=== PATIENT | male | born 1995 | race Two or more races ===

== ENCOUNTER 2024-07-19 17:29 | Observation (INO) | payer MEDICAID, SELFPAY ==
[2024-07-19 17:32] VITALS: BMI 33.6
[2024-07-19 17:45] VITALS: BP 185/120; BP 187/124; PULSE 104; RESP 18; TEMP 37.1; O2SAT 98
--- NOTE | 2024-07-19 18:06 | PD.EDADULT ---
ED General RME/HPI General Chief complaint: Abdominal Pain Stated complaint: Possible DKA, Pain to right x 2 weeks ago Time Seen by Provider: 07/19/24 17:35 Arrival date/time: 07/19/24 17:29 RME / HPI RME / HPI narrative: 29-year-old male coming to the emergency department with increased blood sugars and thigh pain that started in the last 2 weeks. The patient states that he has not had a, and he does not have any type of infection or rash. However he has had specific trauma that he noticed. Otherwise no back pain, and no falls. The patient states that he just recently restarted his bipolar medication as well. Related Data Home Medications ?Medication ?Instructions ?Recorded ?Confirmed chlorthalidone 25 mg tablet 25 mg PO QDAY 11/04/19 12/25/22 insulin glargine 100 unit/mL (3 20 unit subcut QDAY 11/04/19 12/25/22 mL) subcutaneous pen (Basaglar KwikPen U-100 Insulin) insulin regular human 100 unit/mL 10 unit subcut TID 11/04/19 12/25/22 injection solution (Humulin R Regular U-100 Insulin) lisinopril 40 mg tablet 40 mg PO QDAY 11/04/19 12/25/22 buspirone 30 mg tablet 30 mg PO QHSPRN PRN Anxiety 12/18/22 12/18/22 sertraline 100 mg tablet 100 mg PO QHSPRN PRN DEPRESSION 12/18/22 12/18/22 ziprasidone HCl 80 mg capsule 80 mg PO QHSPRN PRN ANTIPSYCHOTIC 12/18/22 12/18/22 Previous Rx's ?Medication ?Instructions ?Recorded hydroxyzine HCl 50 mg tablet 50 mg PO Q6H PRN anxiety #20 tabs 11/03/19 doxycycline hyclate 100 mg capsule 100 mg PO BID #14 caps 11/14/22 Allergies Allergy/AdvReac Type Severity Reaction Status Date / Time cephalexin Allergy Severe RASH Verified 03/14/21 14:45 amoxicillin Allergy Verified 11/14/22 10:44 Course Orders Category Date Time Status Bedside Blood Glucose NOW Care 07/19/24 17:36 Active A1C [Glycohemoglobin w (eAG)] Stat Lab 07/19/24 17:53 Ordered Alcohol, Blood Medical Stat Lab 07/19/24 17:53 Ordered Beta Hydroxybutyrate Stat Lab 07/19/24 17:53 Ordered CBC Stat Lab 07/19/24 17:53 Ordered Comprehensive Metabolic Panel Stat Lab 07/19/24 17:53 Ordered Drug Screen,Urine Stat Lab 07/19/24 17:53 Ordered Lipase Stat Lab 07/19/24 17:53 Ordered UA, C/S IF [Urinalysis, C/S if Indicated] Stat Lab 07/19/24 17:53 Ordered VBG [Venous Blood Gas] Stat Lab 07/19/24 17:53 Ordered Sodium Chloride 0.9% 1000 ml [Ns] 1,000 ml Med 07/19/24 17:53 Active IV 999 mls/hr Vital Signs Vital signs: Vital Signs Temperature 98.7 F 07/19/24 17:45 Pulse Rate 104 H 07/19/24 17:45 Respiratory Rate 18 07/19/24 17:45 Blood Pressure 187/124 H 07/19/24 17:45 Pulse Oximetry (%) 98 07/19/24 17:45 Oxygen Delivery Method Room Air 07/19/24 17:45 MDM Medications Medication administrations:: Medication Administration History Sodium Chloride (Ns) 1,000 mls @ 999 mls/hr IV .Q1H1M ONE Stop: 07/19/24 18:53 Medical Decision Making MDM Narrative MDM Narrative: Differential diagnosis includes DVT, cellulitis, abscess, noncompliance. Discharge Plan Prescriptions/Referrals Prescriptions/Med Rec: No Action hydroxyzine HCl 50 mg tablet 50 mg PO Q6H PRN (Reason: anxiety) Qty: 20 0RF chlorthalidone 25 mg Tablet 25 mg PO QDAY Humulin R Regular U-100 Insuln 100 unit/mL Solution 10 unit SUBCUT TID lisinopril 40 mg Tablet 40 mg PO QDAY insulin glargine [Basaglar KwikPen U-100 Insulin] 100 unit/mL (3 mL) Insulin Pen 20 unit SUBCUT QDAY doxycycline hyclate 100 mg capsule 100 mg PO BID Qty: 14 0RF ziprasidone HCl 80 mg Capsule 80 mg PO QHSPRN PRN (Reason: ANTIPSYCHOTIC) Rx Instructions: give with food (meal/snack) sertraline 100 mg Tablet 100 mg PO QHSPRN PRN (Reason: DEPRESSION) buspirone 30 mg Tablet 30 mg PO QHSPRN PRN (Reason: Anxiety) Patient/Caregiver Discharge Instructions Print Language: Swazi
--- NOTE | 2024-07-19 18:12 | XR_ITS ---
Examination: Duplex scan of the lower extremity, unilateral right complete Date and time of exam: July 19, 2024 1837 hrs. Indications: Right thigh pain beginning 3 weeks ago Technique: Duplex scan of the extremity veins using B-mode/grayscale imaging and Doppler spectral analysis and color flow Attention is directed to internal echogenicity, compression and augmentation involving these veins, color flow assessment, spectral analysis Findings: Major deep venous structures in the extremity demonstrate normal course and caliber. There is no evidence of deep vein thrombosis. Normal color flow and spectral analysis Impression: Negative for DVT..
[2024-07-19 18:14] LABS: Collection Type, Urine Clean Catch; Squamous Epithelial Cell,Urine 0 /hpf (0-5); WBC,Urine 0 /hpf (0-5)
[2024-07-19 18:15] LABS: Base Excess, Venous -1 (-3-3); O2 Saturation, Venous 33 % (96-97); PCO2, Venous 55 mmHg (36-56); PO2, Venous 22 mmHg (15-58)
[2024-07-19 18:16] VITALS: BP 131/99; PULSE 101; RESP 14; TEMP 36.9; O2SAT 97
[2024-07-19 18:18] LABS: Basophils # (Auto) 0.1 Thou/mm3 (0.0-0.2); Basophils % (Auto) 1 % (0-2.5); Eosinophils # (Auto) 0.5 Thou/mm3 (0.0-0.5); Eosinophils % (Auto) 5 % (0-10); Hematocrit 45.4 % (41.0-53.0); Immature Granulocytes % (Auto) 0 % (0-0); Immature Granulocytes Auto 0.03 Thou/mm3 (0.00-0.00); Lymphocytes # (Auto) 3.1 Thou/mm3 (1.0-4.8); Lymphocytes % (Auto) 30 % (10-50); Mean Corpuscular HGB Conc 37.4 g/dl (31.0-37.0); Mean Corpuscular Hemoglobin 31.9 pg (25.0-35.0); Mean Corpuscular Volume 85 fL (80-100); Monocytes # (Auto) 0.7 Thou/mm3 (0.0-0.8); Monocytes % (Auto) 6 % (0-12); Neutrophils % (Auto) 58 % (37-80); Nucleated Red Blood Cell % 0 /100 WBC (0); Platelet Count 516 Thou/mm3 (140-440); RDW Standard Deviation 37.9 fL (35.1-43.9); Red Blood Count 5.33 Miln/mm3 (4.50-5.90); White Blood Count 10.3 Thou/mm3 (3.8-10.6)
[2024-07-19 18:19] LABS: Beta Hydroxybutyrate 0.2 mmol/L (<0.6)
--- NOTE | 2024-07-19 18:25 | PD.EDADULT ---
ED General RME/HPI General Chief complaint: Abdominal Pain Stated complaint: Possible DKA, Pain to right x 2 weeks ago Time Seen by Provider: 07/19/24 17:35 Arrival date/time: 07/19/24 17:29 Physical right leg pain, suicidal and homicidal ideation, elevated blood glucose level. The patient presents to the ER with these complaints likely has been ongoing for the past 2 weeks review the medical record show the patient has been here multiple times for hyperglycemia. Patient admits to being depressed but has no plan. Currently localized leg pain is 3-4 on a 10 scale nonradiating. Patient is awake alert flat affect with no direct eye contact. Patient also states that he is both homicidal and suicidal without a plan. Patient dates he does not get along with his family members. RME / HPI RME / HPI narrative: 29-year-old male coming to the emergency department with increased blood sugars and thigh pain that started in the last 2 weeks. The patient states that he has not had a, and he does not have any type of infection or rash. However he has had specific trauma that he noticed. Otherwise no back pain, and no falls. The patient states that he just recently restarted his bipolar medication as well. Related Data Home Medications ?Medication ?Instructions ?Recorded ?Confirmed buspirone 30 mg tablet 30 mg PO QHSPRN PRN Anxiety 12/18/22 07/20/24 sertraline 100 mg tablet 100 mg PO QHSPRN PRN DEPRESSION 12/18/22 07/20/24 ziprasidone HCl 80 mg capsule 80 mg PO QHSPRN PRN ANTIPSYCHOTIC 12/18/22 07/20/24 trazodone 50 mg tablet 50 mg PO HS 07/20/24 07/20/24 Previous Rx's ?Medication ?Instructions ?Recorded amlodipine 10 mg tablet 10 mg PO HS 1 month #30 tabs 07/21/24 blood sugar diagnostic (Blood #50 ea 07/21/24 Glucose Test strips) blood-glucose meter #1 ea 07/21/24 chlorthalidone 25 mg tablet 25 mg PO QDAY 1 month #30 tabs 07/21/24 flash glucose scanning reader #1 ea 07/21/24 (FreeStyle Shannan 2 Spencer) flash glucose sensor (FreeStyle #2 ea 07/21/24 Shannan 2 Sensor kit) insulin degludec 200 unit/mL (3 10 unit (0.05 mL) subcut HS 1 07/21/24 mL) subcutaneous pen month #1.5 mL insulin lispro 100 unit/mL 5 unit (0.05 mL) subcut TID 1 07/21/24 subcutaneous pen month #4.5 mL lancets #100 ea 07/21/24 losartan 50 mg tablet 50 mg PO QDAY 1 month #30 tabs 07/21/24 pen needle, diabetic 29 gauge x #100 ea 07/21/24 1/2 (Pen Needle) Allergies Allergy/AdvReac Type Severity Reaction Status Date / Time cephalexin Allergy Severe RASH Verified 03/14/21 14:45 amoxicillin Allergy Verified 11/14/22 10:44 Review of Systems Review of Systems Narrative Review of Systems: GEN: No fever, no chills, no weight loss EYES: No discharge, no visual changes, no pain HEENT: No ear pain, no congestion, no sore throat PULM: No shortness of breath, no cough, no congestion CV: No chest pain, no dyspnea on exertion, no palpitations GI: No nausea, no vomiting, no diarrhea, no pain, no constipation : No frequency, no urgency, no dysuria MUSC/SKEL: No joint pain, no back pain,+ leg pain SKIN: No rash PSYCH: No hallucinations, no depression HEME/LYMPH: No easy bleeding or bruising tendencies NEURO: No weakness, no headache ED Exam Narrative Physical exam: [General: Obese agitated tearful but not in any acute distress Head normocephalic HEENT: Within acceptable limits Neck is supple nontender Chest equal chest rise nontender to palpation Respiratory: Clear to auscultation no wheezes crackles or rubs CV: Rate rhythm is regular no murmurs rubs or clicks Abdomen is distended secondary to body habitus soft nontender no masses positive bowel sounds all 4 quadrants Back: No CVA tenderness no spinous process tenderness from cervical spine thoracic and lumbar spine Skin: Intact no petechiae rash induration ulceration or crepitus Extremities: Mild tenderness to the medial aspect of the right upper thigh there is no erythema edema bulging outpouching or tracks. All other aspects of the right thigh including anterior and posterior surface are intact. Moving all other extremities against resistance cap refill less than 2 seconds neurosensory intact Neuro: Awake alert oriented x3 Glascow coma 15 no focal deficits] Course Quality Measures none Orders Category Date Time Status 1799 Psychiatric Hold NOW Care 07/19/24 18:30 Ordered Bedside Blood Glucose NOW Care 07/19/24 17:36 Completed US venous doppler LE RT Stat Exams 07/19/24 18:12 Completed A1C [Glycohemoglobin w (eAG)] Stat Lab 07/19/24 18:04 Completed Alcohol, Blood Medical Stat Lab 07/19/24 18:04 Completed Alcohol, Blood Medical Stat Lab 07/19/24 23:05 Completed Beta Hydroxybutyrate Stat Lab 07/19/24 18:04 Completed Blood Culture (Lab) Stat Lab 07/20/24 08:40 Results CBC Stat Lab 07/19/24 18:04 Completed CBC Stat Lab 07/20/24 08:35 Completed CMP [Comprehensive Metabolic Panel] Stat Lab 07/20/24 07:50 Completed Comprehensive Metabolic Panel Stat Lab 07/19/24 18:04 Completed Drug Screen,Urine Stat Lab 07/19/24 18:06 Completed Lactate (Lactic Acid) Stat Lab 07/20/24 08:35 Completed Lipase Stat Lab 07/19/24 18:04 Completed Lipase Stat Lab 07/20/24 07:50 Completed Lipid Panel Stat Lab 07/19/24 18:04 Completed UA, C/S IF [Urinalysis, C/S if Indicated] Stat Lab 07/19/24 18:06 Completed VBG [Venous Blood Gas] Stat Lab 07/19/24 18:04 Completed Venous Blood Gas Stat Lab 07/20/24 08:35 Completed Acetaminophen Tab [Tylenol Tab] Med 07/19/24 21:07 Discontinued 650 mg PO X1 ONE Acetaminophen Tab [Tylenol Tab] Med 07/20/24 04:21 Discontinued 650 mg PO X1 ONE LORazepam [Ativan] Med 07/20/24 04:21 Discontinued 2 mg PO X1 ONE Sodium Chloride 0.9% 1000 ml [Ns] 1,000 ml Med 07/20/24 11:27 Discontinued IV 150 mls/hr Sodium Chloride 0.9% 1000 ml [Ns] 1,000 ml Med 07/19/24 17:53 Discontinued IV 999 mls/hr Sodium Chloride 0.9% 1000 ml [Ns] 1,000 ml Med 07/20/24 08:15 Discontinued IV 999 mls/hr Vital Signs Vital signs: Vital Signs Temperature 98.7 F 07/19/24 17:45 Pulse Rate 104 H 07/19/24 17:45 Respiratory Rate 18 07/19/24 17:45 Blood Pressure 187/124 H 07/19/24 17:45 Pulse Oximetry (%) 98 07/19/24 17:45 Oxygen Delivery Method Room Air 07/19/24 17:45 [facility] Patient data [facility] records [facility] previous records Clinical information provided by:: patient Social determinants that could affect healthcare access:: none Patient has the following chronic illnesses:: Diabetes How is presenting disease/condition affected by chronic disease/condition?: exacerbated by Evaluation data The following diagnostics were reviewed and interpreted by me:: lab results and radiology exam(s) Lab and/or radiology exams considered but not ordered:: CBC shows no acute leukocytosis anemia thrombocytopenia CMP shows significantly elevated blood glucose level no other electrolyte imbalances no renal impairment transaminitis or T. bili elevation VBG shows pH of 7.30 Hemoglobin A1c is 13 Alcohol level is 181 Lipase is 115 Beta hydroxy was 0.2. Interpretation Summary: The patient has hyperglycemia without DKA. Patient is alcohol intoxicated Medications Medications considered but not ordered:: None Medication administrations:: Medication Administration History Discontinued Medications Acetaminophen (Acetaminophen 325 Mg Tablet) 650 mg PO X1 ONE Stop: 07/19/24 21:08 Last Admin: 07/19/24 21:09 Dose: 650 mg Documented By: EE Acetaminophen (Acetaminophen 325 Mg Tablet) 650 mg PO X1 ONE Stop: 07/20/24 04:22 Last Admin: 07/20/24 04:36 Dose: 650 mg Documented By: EE Acetaminophen (Acetaminophen 325 Mg Tablet) 650 mg PO Q6H PRN PRN Reason: Fever >101.5 Stop: 08/19/24 12:06 Amlodipine Besylate (Amlodipine Besylate 5 Mg Tablet) 5 mg PO X1 PRN PRN Reason: SBP >160 Amlodipine Besylate (Amlodipine Besylate 5 Mg Tablet) 10 mg PO QDAY [facility] Stop: 08/19/24 12:29 Last Admin: 07/20/24 14:30 Dose: 10 mg Documented By: IKE Amlodipine Besylate (Amlodipine Besylate 5 Mg Tablet) 10 mg PO QDAY [facility] Stop: 08/20/24 08:59 Last Admin: 07/21/24 09:38 Dose: 10 mg Documented By: NS Aripiprazole (Aripiprazole 5 Mg Tablet) 30 mg PO QDAY [facility] Stop: 08/19/24 17:14 Last Admin: 07/21/24 09:36 Dose: 30 mg Documented By: Admin: 07/20/24 19:10 Dose: 30 mg Documented By: IKE Buspirone HCl (Buspirone Hcl 5 Mg Tablet) 20 mg PO X1 PRN PRN Reason: AGITATION OR ANXIETY Chlordiazepoxide HCl (Chlordiazepoxide Hcl 25 Mg Capsule) 25 mg PO Q8HR [facility] Stop: 07/25/24 13:59 Last Admin: 07/21/24 14:11 Dose: 25 mg Documented By: Admin: 07/21/24 05:00 Dose: 25 mg Documented By: Admin: 07/20/24 21:20 Dose: 25 mg Documented By: Admin: 07/20/24 14:31 Dose: 25 mg Documented By: IKE Clonidine (Clonidine Hcl 0.1 Mg Tablet) 0.1 mg PO X1 ONE Stop: 07/20/24 21:45 Last Admin: 07/20/24 21:55 Dose: 0.1 mg Documented By: KRISTIE Dextrose (Dextrose 50%-Water Inj 50 Ml Syringe) 25 ml IV Q15MIN PRN PRN Reason: BG 50-70 responsive npo pt Stop: 08/19/24 12:15 Dextrose (Dextrose 50%-Water Inj 50 Ml Syringe) 50 ml IV Q15MIN PRN PRN Reason: BG <50 OR BG <70 & pt unresponsive Stop: 08/19/24 12:15 Folic Acid (Folic Acid 1 Mg Tablet) 1 mg PO QDAY [facility] Stop: 08/23/24 08:59 Folic Acid (Folic Acid Inj 1 Mg/0.2 Ml) 1 mg IVP QDAY [facility] Stop: 07/24/24 08:59 Last Admin: 07/21/24 11:54 Dose: 1 mg Documented By: TONYA Glucagon (Glucagon Inj 1 Mg Vial) 1 mg IM Q15MIN PRN PRN Reason: BG <70, and no IV access Hydralazine HCl (Hydralazine Inj 20 Mg/Ml Vial) 10 mg IV Q6HR PRN PRN Reason: SBP > 170 Stop: 08/19/24 18:16 Last Admin: 07/20/24 20:01 Dose: 10 mg Documented By: KRISTIE Sodium Chloride (Ns) 1,000 mls @ 999 mls/hr IV .Q1H1M ONE Stop: 07/19/24 18:53 Last Infusion: 07/19/24 20:50 Dose: Infused Documented By: Admin: 07/19/24 18:44 Dose: 999 mls/hr Documented By: GM Sodium Chloride (Ns) 1,000 mls @ 999 mls/hr IV .Q1H1M ONE Stop: 07/20/24 09:15 Last Infusion: 07/20/24 09:50 Dose: Infused Documented By: Admin: 07/20/24 08:31 Dose: 999 mls/hr Documented By: AVM Sodium Chloride (Ns) 1,000 mls @ 150 mls/hr IV .Q6H40M ONE; Protocol Stop: 07/20/24 18:06 Last Admin: 07/20/24 11:57 Dose: 150 mls/hr Documented By: IKE Magnesium Sulfate (Magnesium Sulfate Ivpb) 2 gm in 50 mls @ 25 mls/hr IV X1 ONE Stop: 07/21/24 10:55 Last Admin: 07/21/24 09:37 Dose: 25 mls/hr Documented By: TONYA Influenza Virus Vaccine Quadrival (Influenza Virus Quadrivalent 0.5 Ml Syringe) 0.5 ml IMi .ONCE ONE Stop: 07/23/24 21:15 Insulin Glargine (Insulin Glargine (Lantus) 5 Unit/0.05 Ml (Per 5 Units)) 10 unit SC [facility] Stop: 08/19/24 20:59 Last Admin: 07/20/24 21:20 Dose: 10 unit Documented By: WO Co-signed By: FF Insulin Human Lispro (Insulin Lispro (Admelog) 1 Unit/0.01 Ml Unit) 0 unit SC [facility]; Protocol Stop: 08/19/24 16:59 Last Admin: 07/21/24 11:53 Dose: 1 unit Documented By: TONYA Co-signed By: [email or web address] Admin: 07/21/24 08:22 Dose: 1 unit Documented By: TONYA Co-signed By: CS Admin: 07/20/24 20:30 Dose: Not Given Documented By: WO Non-Admin Reason: Per Protocol Admin: 07/20/24 18:27 Dose: 1 unit Documented By: IKE Co-signed By: SL Labetalol HCl (Labetalol Inj 5 Mg/Ml Vial 20 Ml) 10 mg IVP X1 ONE Stop: 07/20/24 21:35 Last Admin: 07/21/24 00:18 Dose: Not Given Documented By: WO Non-Admin Reason: Discontinued Lisinopril (Lisinopril 20 Mg Tablet) 40 mg PO QDAY [facility] Stop: 08/20/24 11:14 Last Admin: 07/21/24 11:53 Dose: 40 mg Documented By: NS Lorazepam (Lorazepam 0.5 Mg Tablet) 2 mg PO X1 ONE Stop: 07/20/24 04:22 Last Admin: 07/20/24 04:35 Dose: 2 mg Documented By: MIKKI Lorazepam (Lorazepam 0.5 Mg Tablet) 1 mg PO Q4HR PRN PRN Reason: CIWA SCORE 7-11 Stop: 07/25/24 12:11 Lorazepam (Lorazepam 0.5 Mg Tablet) 2 mg PO Q4HR PRN PRN Reason: CIWA SCORE 12-15 Stop: 07/25/24 12:11 Lorazepam (Lorazepam 0.5 Mg Tablet) 0.5 mg PO Q4HR PRN PRN Reason: CIWA Score 2-6 Stop: 07/25/24 12:11 Last Admin: 07/20/24 20:01 Dose: 0.5 mg Documented By: KRISTIE Lorazepam (Lorazepam 2 Mg/Ml Vial) 1 mg IV X1 PRN PRN Reason: Breakthrough Agitation Ondansetron HCl (Ondansetron Inj 2 Mg/Ml Inj 2 Ml) 4 mg IV Q6H PRN; Protocol PRN Reason: NAUSEA OR VOMITING Stop: 08/19/24 12:06 Pantoprazole Sodium (Pantoprazole 40 Mg Tablet) 40 mg PO QDAY [facility] Stop: 08/20/24 08:59 Last Admin: 07/21/24 09:36 Dose: 40 mg Documented By: NS Sertraline HCl (Sertraline Hcl 25 Mg Tablet) 25 mg PO [facility] Stop: 08/19/24 20:59 Sertraline HCl (Sertraline Hcl 25 Mg Tablet) 50 mg PO [facility] Stop: 08/19/24 20:59 Last Admin: 07/20/24 21:20 Dose: 50 mg Documented By: KRISTIE Thiamine HCl (Thiamine Inj 100 Mg/Ml Vial 2 Ml) 100 mg IVP QDAY [facility] Stop: 07/24/24 06:00 Last Admin: 07/21/24 09:37 Dose: 100 mg Documented By: NS Thiamine HCl (Thiamine 100 Mg Tablet) 100 mg PO QDAY [facility] Stop: 08/23/24 08:59 Trazodone HCl (Trazodone Hcl 50 Mg Tablet) 50 mg PO HS [facility] Stop: 08/19/24 21:34 Last Admin: 07/20/24 21:55 Dose: 50 mg Documented By: WO Ziprasidone (Ziprasidone 20 Mg Capsule) 20 mg PO HS [facility] Stop: 08/19/24 20:59 None Consultations Consultation(s) initiated? (list below): No Diagnosis Differential Diagnosis ED Complaint MDM: Suicidal ideation alcohol intoxication schizophrenia Most likely diagnosis given after review of the tests above:: Suicidal ideation alcohol intoxication Admission Indicated Admission indicated?: indicated Explain why admission is indicated or not indicated:: Cycled Admission Request Was there a request for admission?: No Disposition Plan Disposition Plan: Discharge Discharge Attestation Discharge Attestation: The patient and all family members were given an opportunity to ask questions and understood the discharge instructions. Discharge instructions specifically effects, indications for sooner follow up or return to the emergency department, and the expected course of current diagnosis. Patient condition: Stable Medical Decision Making Differential Diagnosis Differential Diagnosis: Suicidal ideation alcohol intoxication schizophrenia Lab Data 07/21/24 04:33 07/21/24 04:33 Labs: Lab Results 07/19/24 07/19/24 07/19/24 Range/Units 18:04 18:06 23:05 WBC 10.3 (3.8-10.6) Thou/mm3 RBC 5.33 (4.50-5.90) Miln/mm3 Hgb 17.0 H (13.5-16.0) g/dL Hct 45.4 (41.0-53.0) % MCV 85 (80-100) fL MCH 31.9 (25.0-35.0) pg MCHC 37.4 H (31.0-37.0) g/dl RDW Std Deviation 37.9 (35.1-43.9) fL Plt Count 516 H (140-440) Thou/mm3 Neut % (Auto) 58 (37-80) % Lymph % (Auto) 30 (10-50) % [place] % (Auto) 6 (0-12) % Eos % (Auto) 5 (0-10) % Baso % (Auto) 1 (0-2.5) % Neut # (Auto) 6.0 (1.8-7.7) Thou/mm3 Lymph # (Auto) 3.1 (1.0-4.8) Thou/mm3 [place] # (Auto) 0.7 (0.0-0.8) Thou/mm3 Eos # (Auto) 0.5 (0.0-0.5) Thou/mm3 Baso # (Auto) 0.1 (0.0-0.2) Thou/mm3 Immature Gran # (Auto) 0.03 H (0.00-0.00) Thou/mm3 Absolute Nucleated RBC 0.00 (0.00-0.00) Thou/mm3 Immature Gran % 0 (0-0) % Nucleated RBC % 0 (0) /100 WBC VBG pH 7.30 L (7.33-7.66) VBG pCO2 55 (36-56) mmHg VBG pO2 22 (15-58) mmHg VBG O2 Sat (Obdulia) 33 L (96-97) % VBG Base Excess -1 (-3-3) Sodium 127 L (136-145) mMol/L Potassium 4.4 (3.4-5.1) mMol/L Chloride 93 L (98-107) mMol/L Carbon Dioxide 25.3 (20.0-31.0) mMol/L Anion Gap 9 (7-16) BUN 22 (9-23) mg/dL Creatinine 1.7 H (0.6-1.3) mg/dL Estim Creat Clear Calc 61.1 (>60) mL/min eGFR 55 L (60 - ) See Note BUN/Creatinine Ratio 13 (12-20) Ratio Glucose 357 H (74-106) mg/dL Estimated Ave Glu mg/dL 329 H (80-131) mg/dL Hemoglobin A1c 13.1 H (4.8-6.0) % Hgb Calculated Osmolality 272 L (275-295) Lactic Acid (0.4-2.0) mMol/L Calcium 10.2 (8.3-10.6) mg/dL Corrected Calcium 10.2 H (8.5-10.1) mg/dL Total Bilirubin 0.2 L (0.3-1.2) mg/dL AST 17 (0-34) U/L ALT 16 (10-49) U/L Alkaline Phosphatase 146 H (46-116) U/L Total Protein 9.7 H (5.7-8.2) gm/dL Albumin 5.0 (3.5-5.0) gm/dL Globulin 4.7 H (2.3-3.5) gm/dL Albumin/Globulin Ratio 1.1 L (1.2-2.2) Triglycerides 221 H (30-150) mg/dL Cholesterol 171 (132-200) mg/dL LDL Cholesterol, Calc 68 (0-130) mg/dL HDL Cholesterol 59 (40-60) mg/dL Cholesterol/HDL Ratio 2.9 L (4.0-6.7) RATIO Lipase 150 H (12-53) U/L Beta-Hydroxybutyrate/Acetoacetate 0.2 (<0.6) mmol/L Ur Collection Type Clean Catch Urine Color Colorless A (Lt Yel-Yel) Urine Clarity Clear (Clear/Hazy) Urine pH 6.0 (5.0-7.0) Ur Specific [place] 1.007 (1.001-1.035) Urine Protein 1+ A (Neg - Trace) Urine Glucose (UA) 4+ A (Negative) Urine Ketones Negative (Negative) Urine Blood Trace (Negative) Urine Nitrite Negative (Negative) Urine Bilirubin Negative (Negative) Urine Urobilinogen (Auto) Negative (0.0-1.0) mg/dL Ur Leukocyte Esterase Negative (Negative) Urine RBC 4 H (0-3) /hpf Urine WBC 0 (0-5) /hpf Ur Squamous Epith Cells 0 (0-5) /hpf Urine Bacteria Rare (None) Ur Culture Indicated? Not Indicated Urine Opiates Screen Negative (Negative) Urine Fentanyl Screen Negative (Negative) Ur Barbiturates Screen Negative (Negative) U Amphetamin/Meth Scrn Negative (Negative) U Benzodiazepines Scrn Negative (Negative) U Cocaine Metab Screen Negative (Negative) U Marijuana (THC) Screen Positive A (Negative) Ethyl Alcohol 190.4 H 49.6 H (0-10.0) mg/dL 07/20/24 07/20/24 Range/Units 07:50 08:35 WBC 7.6 (3.8-10.6) Thou/mm3 RBC 4.79 (4.50-5.90) Miln/mm3 Hgb 14.3 D (13.5-16.0) g/dL Hct 42.1 (41.0-53.0) % MCV 88 (80-100) fL MCH 29.9 (25.0-35.0) pg MCHC 34.0 (31.0-37.0) g/dl RDW Std Deviation 40.0 (35.1-43.9) fL Plt Count 371 D (140-440) Thou/mm3 Neut % (Auto) 53 (37-80) % Lymph % (Auto) 34 (10-50) % [place] % (Auto) 8 (0-12) % Eos % (Auto) 4 (0-10) % Baso % (Auto) 1 (0-2.5) % Neut # (Auto) 4.1 (1.8-7.7) Thou/mm3 Lymph # (Auto) 2.6 (1.0-4.8) Thou/mm3 [place] # (Auto) 0.6 (0.0-0.8) Thou/mm3 Eos # (Auto) 0.3 (0.0-0.5) Thou/mm3 Baso # (Auto) 0.1 (0.0-0.2) Thou/mm3 Immature Gran # (Auto) 0.02 H (0.00-0.00) Thou/mm3 Absolute Nucleated RBC 0.00 (0.00-0.00) Thou/mm3 Immature Gran % 0 (0-0) % Nucleated RBC % 0 (0) /100 WBC VBG pH 7.36 (7.33-7.66) VBG pCO2 48 (36-56) mmHg VBG pO2 36 (15-58) mmHg VBG O2 Sat (Obdulia) 68 L D (96-97) % VBG Base Excess 1 (-3-3) Sodium 138 D (136-145) mMol/L Potassium 4.5 (3.4-5.1) mMol/L Chloride 105 (98-107) mMol/L Carbon Dioxide 28.0 (20.0-31.0) mMol/L Anion Gap 5 L (7-16) BUN 22 (9-23) mg/dL Creatinine 1.4 H (0.6-1.3) mg/dL Estim Creat Clear Calc 74.2 (>60) mL/min eGFR > 60 (60 - ) See Note BUN/Creatinine Ratio 16 (12-20) Ratio Glucose 111 H D (74-106) mg/dL Estimated Ave Glu mg/dL (80-131) mg/dL Hemoglobin A1c (4.8-6.0) % Hgb Calculated Osmolality 279 (275-295) Lactic Acid 0.9 (0.4-2.0) mMol/L Calcium 10.1 (8.3-10.6) mg/dL Corrected Calcium 10.1 (8.5-10.1) mg/dL Total Bilirubin 0.3 (0.3-1.2) mg/dL AST 13 (0-34) U/L ALT 12 (10-49) U/L Alkaline Phosphatase 100 D (46-116) U/L Total Protein 8.0 (5.7-8.2) gm/dL Albumin 4.0 D (3.5-5.0) gm/dL Globulin 4.0 H (2.3-3.5) gm/dL Albumin/Globulin Ratio 1.0 L (1.2-2.2) Triglycerides (30-150) mg/dL Cholesterol (132-200) mg/dL LDL Cholesterol, Calc (0-130) mg/dL HDL Cholesterol (40-60) mg/dL Cholesterol/HDL Ratio (4.0-6.7) RATIO Lipase 38 D (12-53) U/L Beta-Hydroxybutyrate/Acetoacetate (<0.6) mmol/L Ur Collection Type Urine Color (Lt Yel-Yel) Urine Clarity (Clear/Hazy) Urine pH (5.0-7.0) Ur Specific [place] (1.001-1.035) Urine Protein (Neg - Trace) Urine Glucose (UA) (Negative) Urine Ketones (Negative) Urine Blood (Negative) Urine Nitrite (Negative) Urine Bilirubin (Negative) Urine Urobilinogen (Auto) (0.0-1.0) mg/dL Ur Leukocyte Esterase (Negative) Urine RBC (0-3) /hpf Urine WBC (0-5) /hpf Ur Squamous Epith Cells (0-5) /hpf Urine Bacteria (None) Ur Culture Indicated? Urine Opiates Screen (Negative) Urine Fentanyl Screen (Negative) Ur Barbiturates Screen (Negative) U Amphetamin/Meth Scrn (Negative) U Benzodiazepines Scrn (Negative) U Cocaine Metab Screen (Negative) U Marijuana (THC) Screen (Negative) Ethyl Alcohol (0-10.0) mg/dL Discharge Plan Plan Patient Disposition: Other Care w/in Hosp ([facility]) Disposition Comment: Hospitalist Patient condition on transfer: Stable Problem List Clinical Impression: Acute kidney injury, Diabetes mellitus with hyperglycemia, Acute dehydration, Polycythemia, Metabolic acidosis, History of ETOH abuse Patient/Caregiver Discharge Instructions Discharge Activity: resume usual activities
--- NOTE | 2024-07-19 18:30 | PC.NURSE ---
PT OCMING FROM ED LOBBY S/P HYPERGLYCEMIA; PT REPORTS TAKING FSBS AT HOME RESULTING 414. PT HAS HX OF DM AND PSYHICATRIC DISORDERS (BIPOLAR AND DEPRESSION & ANXIETY). PT ALSO STATED, I FEEL LIKE HURTING MYSELF. I JUST WANNA END IT ALL. I'M SO TIRED. REMA BASE BRANDER MADE AWARE. PT PLACED IN 1799 HOLD AT THIS TIME. PT CONNECTED TO MONITORS AT THIS TIME FOR DKA WORKUP.
[2024-07-19 18:31] LABS: Bacteria,Urine Rare; Bilirubin,Urine Negative (Negative); Blood,Urine Trace (Negative); Clarity,Urine Clear (Clear/Hazy); Color,Urine Colorless (Lt Yel-Yel); Culture Indicated,Urine Not Indicated; Glucose, Urine 4+ (Negative); Ketones,Urine Negative (Negative); Leukocyte Esterase,Urine Negative (Negative); Nitrite,Urine Negative (Negative); Protein,Urine 1+ (Neg - Trace); RBC,Urine 4 /hpf (0-3); Specific Gravity,Urine 1.007 (1.001-1.035); Urobilinogen,Urine Negative mg/dL (0.0-1.0)
[2024-07-19 18:36] LABS: Amphetamine/Methamp Scrn,U Negative (Negative); Barbiturate Screen,Urine Negative (Negative); Benzodiazepines Screen,Urine Negative (Negative); Benzoylecgonine Screen, Ur Negative (Negative); Fentanyl Screen,Urine Negative (Negative); Opiate Screen,Urine Negative (Negative); THC Screen,Urine Positive (Negative)
[2024-07-19] MEDS: SODIUM CHLORIDE 0.9% 1000 ML 1,000 ML 999 ML IV (18:44)
[2024-07-19 18:47] LABS: Glucose Estimated Average 329 mg/dL (80-131); Hemoglobin A1C 13.1 % Hgb (4.8-6.0)
[2024-07-19 18:48] LABS: Alanine Aminotransferase 16 U/L (10-49); Albumin/Globulin Ratio 1.1 (1.2-2.2); Alcohol, Blood Medical 190.4 mg/dL (0-10.0); Alkaline Phosphatase 146 U/L (46-116); Anion Gap 9 (7-16); Aspartate Amino Transferase 17 U/L (0-34); BUN/Creatinine Ratio 13 Ratio (12-20); Bilirubin,Total 0.2 mg/dL (0.3-1.2); Blood Urea Nitrogen 22 mg/dL (9-23); Calcium 10.2 mg/dL (8.3-10.6); Calcium (Corrected) 10.2 mg/dL (8.5-10.1); Carbon Dioxide 25.3 mMol/L (20.0-31.0); Chloride 93 mMol/L (98-107); Creatinine (Component) 1.7 mg/dL (0.6-1.3); Estimated Creatinine Clearance 61.1 mL/min (>60); Globulin 4.7 gm/dL (2.3-3.5); Glucose 357 mg/dL (74-106); Lipase 150 U/L (12-53); Osmolality,Calculated 272 (275-295); Potassium 4.4 mMol/L (3.4-5.1); Sodium 127 mMol/L (136-145); Total Protein 9.7 gm/dL (5.7-8.2); eGFR 55 See Note
--- NOTE | 2024-07-19 18:54 | PC.CC ---
Brenda RUIZ was consulted by SHABBIR Rodriguez regarding patient needing a mental health evaluation upon being medically cleared. It was reported that the patient disclosed to SHABBIR Rodriguez that he is suicidal and homicidal but no plan or intention. Patient was placed on a 1799 at 1830 and is pending medical clearance.
--- NOTE | 2024-07-19 19:30 | PC.NURSE ---
Assumed care of pt at this time. Pt sitting in gurney comfortable, does not appear to be in any distress. pt answering all questions and being cooperative. Pt currenly denies SI/HI and states he did say he wanted to harm self but does not want to anymore. Pt states he does have hx of cutting as self harm. SI/HI precaution in place. Pt father at bedside. Sitter at bedside. pt updated on plan of care.
[2024-07-19 20:00] VITALS: BP 180/95; PULSE 107; RESP 18; TEMP 37.1; O2SAT 99
[2024-07-19] MEDS: ACETAMINOPHEN 325 MG TABLET 650 MG PO (21:09)
[2024-07-19 21:17] LABS: Cardiac Risk Estimate 2.9 RATIO (4.0-6.7); Cholesterol 171 mg/dL (132-200); HDL Cholesterol 59 mg/dL (40-60); LDL Cholesterol,Calculated 68 mg/dL (0-130); Triglycerides 221 mg/dL (30-150)
--- NOTE | 2024-07-19 22:42 | PD.EDADDENDU ---
Emergency Room Addendum Addendum Narrative: 2230: Care assumed from Landon Rodriguez NP. Past medical, surgical, social and family history reviewed. Vitals and home medications reviewed. Results and treatment plan discussed. I will assume the care of the patient at this time and will follow the patient, pending medical clearance for crisis evaluation. Please refer to the emergency department record for history and examination from initial visit. OBSERVATION NOTE: The patient was placed in ED observation care at 07/19/24 at 2230 hours. The patient was placed in ED observation care because of pending medical clearance for crisis evaluation. The patients past medical history, social history, and family history were reviewed. The plan of care will include serial examinations. 2335: Repeat blood alcohol is 49.5. Patient is medically cleared for crisis evaluation. Patient is still under observation until crisis evaluation in the morning. Patient is on a 1799 hold. 0600: Care signed out to Dr. Alvarado (emergency physician). Past medical, surgical, social and family history reviewed. Vitals and home medications reviewed. Results and treatment plan discussed. They will assume the care of the patient at this time and will follow the patient, pending crisis evaluation.
[2024-07-19 23:35] LABS: Alcohol, Blood Medical 49.6 mg/dL (0-10.0)
[2024-07-20] VITALS (13 sets, daily range): BP systolic 108–190; BP diastolic 79–107; PULSE 67–94; RESP 15–18; TEMP 36.5–37; O2SAT 96–100; BMI 33.6
--- NOTE | 2024-07-20 04:00 | PC.NURSE ---
Pt pacing back and forth requesting something to help him sleep. pt offered a warm blanket and something to drink or eat but he states he wanted medication to help him fall asleep. pt states he takes trazadone at bedtime. md Gerardo informed and new orders given.
[2024-07-20] MEDS: LORazepam 0.5 MG TABLET 2 MG PO (04:35)
[2024-07-20] MEDS: ACETAMINOPHEN 325 MG TABLET 650 MG PO (04:36)
--- NOTE | 2024-07-20 06:28 | PD.EDADDENDU ---
Emergency Room Addendum Addendum Narrative: 0600: Care assumed from Dr. Hernandez, the previous shift emergency physician. Past medical, surgical, social and family history reviewed. Vitals and home medications reviewed. I will assume the care of the patient at this time, pending mental health evaluation. Please refer to the emergency department record for history and examination from initial visit.? Nursing notes reviewed by me. Vital signs reviewed by me. [facility] medical records reviewed by me.
--- NOTE | 2024-07-20 07:22 | PC.NURSE ---
pt state he no longer feels suicidal. father at bedside. social services coordinator at bedside. father at bedside.
--- NOTE | 2024-07-20 07:23 | PC.NURSE ---
no signs of distress noted
--- NOTE | 2024-07-20 08:05 | PD.EDSUICD ---
ED Psych RME/HPI General Chief Complaint: Abdominal Pain Stated Complaint: Possible DKA, Pain to right x 2 weeks ago Time Seen by Provider: 07/19/24 17:35 Arrival date/time: 07/19/24 17:29 RME / HPI RME / HPI Narrative: Patient was seen here yesterday comes in with suicidal homicidal ideations but is a diabetic noncompliant states has not taken his insulin for 7 days. His labs were quite abnormal including significant polycythemia with a hemoglobin of 17 when baseline was 9 also his kidney function had markedly worsened probably from acute dehydration from hyperglycemia and polyuria. Also patient has been drinking his blood alcohol level was not significantly high but also contributing factor. Because of this patient could not be fully medically cleared and I assumed care of this patient 0600 hrs. where I reevaluated the patient. This morning the patient is alert awake he says he is no longer suicidal or homicidal. He states he has not been taking care of himself and is been taking care of his friend. Related Data Home Medications ?Medication ?Instructions ?Recorded ?Confirmed chlorthalidone 25 mg tablet 25 mg PO QDAY 11/04/19 12/25/22 insulin glargine 100 unit/mL (3 20 unit subcut QDAY 11/04/19 12/25/22 mL) subcutaneous pen (Basaglar KwikPen U-100 Insulin) insulin regular human 100 unit/mL 10 unit subcut TID 11/04/19 12/25/22 injection solution (Humulin R Regular U-100 Insulin) lisinopril 40 mg tablet 40 mg PO QDAY 11/04/19 12/25/22 buspirone 30 mg tablet 30 mg PO QHSPRN PRN Anxiety 12/18/22 12/18/22 sertraline 100 mg tablet 100 mg PO QHSPRN PRN DEPRESSION 12/18/22 12/18/22 ziprasidone HCl 80 mg capsule 80 mg PO QHSPRN PRN ANTIPSYCHOTIC 12/18/22 12/18/22 Previous Rx's ?Medication ?Instructions ?Recorded hydroxyzine HCl 50 mg tablet 50 mg PO Q6H PRN anxiety #20 tabs 11/03/19 doxycycline hyclate 100 mg capsule 100 mg PO BID #14 caps 11/14/22 Allergies Allergy/AdvReac Type Severity Reaction Status Date / Time cephalexin Allergy Severe RASH Verified 03/14/21 14:45 amoxicillin Allergy Verified 11/14/22 10:44 Review of Systems Review of Systems Systems Reviewed: All systems reviewed, normal except as documented Past Medical History Past Medical History CARDIAC: Positive Hypertension ENDOCRINE: Positive Endocrine Disorders and Diabetes Mellitus Type 2 (uses insulin) PSYCHO/SOCIAL: Positive Recreational Drug Use, Depression, Anxiety and Post Traumatic Stress Disorder Family History FAMILY HISTORY: Positive Family Cardiac Disorders Social History SMOKING STATUS: Former smoker SUBSTANCE USE: does not use 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 ED Exam Narrative Physical exam: Physical Exam: General: The vital signs were reviewed. The patient is non-toxic, in no apparent distress and appears healthy with a patent airway, no respiratory distress and has no apparent circulatory problems. Head & Scalp: Normocephalic, atraumatic. Face: Appears normal and is without lesions, deformity. Ears: Left external pinna appears normal. Right external pinna appears normal. Eyes: The sclera is anicteric. No obvious photophobia. The Left and Right Orbit/Lid/Conjunctiva appears normal without swelling, discoloration or injection. Nose: The nose is without deformity, discharge or tenderness; Throat: Appears normal. The mucous membranes are pink and moist without exudates, redness or mass seen. The tongue appears normal. Neck: The neck is supple and no apparent mass or adenopathy. Chest: The chest wall is normal in size and symmetry and has no chest wall tenderness or crepitus. The patient displays normal ventilator effort without retractions, accessory muscle use and has adequate air movement bilaterally with no wheezes and no rales. Cardiovascular: Regular rate and rhythm; No murmurs, rubs, or gallops; Gastrointestinal: The abdomen appears normal. No obvious hernias or mass. The abdomen is soft and benign, non-distended, with no pain, no guarding and no rebound tenderness. Bowel sounds are present and normal sounding. No CVA tenderness. Genitourinary: Back/Spine: Normal inspection Extremities/Musculoskeletal/lymphatic: Patient complains of right inner thigh tenderness but on inspection there is no redness there is no swelling is normal-appearing skin. There is no adenopathy in the right inguinal area. The lower leg is entirely normal in appearance with no obvious injury edema normal range of motion of all the joints The bilateral upper and lower extremities are warm. There is no evidence of arterial insufficiency. There is no evidence of venous insufficiency/edema. The patient spontaneously moves bilateral upper and lower extremities with no pain and no limitation of movement. There is no apparent, injury or trauma. Skin: The skin is warm, dry and intact. No rashes. No petechia. No purpura. No abnormal bruising. The color is appropriate with no cyanosis. Mental status/Psychiatric: Mental status is appropriate for age. The patient has no apparent delusions, visual hallucinations, no apparent audible hallucinations. The patient has no apparent suicidal thoughts/ideation and no apparent homicidal thoughts/ideation. Neurological: The patient is awake, alert, interactive, cordial, cooperative and is oriented to name and situation. The patient follows commands and answers historical question with no impairment. There is no visual disturbance apparent. The pupils are equal and reactive bilaterally with normal eye movements and no diplopia The bilateral upper and lower extremities have normal strength, normal range of motion and normal functioning. The gait, station and balance appear to be baseline with no acute change Course Quality Measures none Orders Category Date Time Status 1799 Psychiatric Hold NOW Care 07/19/24 18:30 Ordered Bedside Blood Glucose NOW Care 07/19/24 17:36 Active US venous doppler LE RT Stat Exams 07/19/24 18:12 Completed A1C [Glycohemoglobin w (eAG)] Stat Lab 07/19/24 18:04 Completed Alcohol, Blood Medical Stat Lab 07/19/24 18:04 Completed Alcohol, Blood Medical Stat Lab 07/19/24 23:05 Completed Beta Hydroxybutyrate Stat Lab 07/19/24 18:04 Completed Blood Culture (Lab) Stat Lab 07/20/24 08:40 Received CBC Stat Lab 07/19/24 18:04 Completed CBC Stat Lab 07/20/24 08:35 Completed CMP [Comprehensive Metabolic Panel] Stat Lab 07/20/24 07:50 Completed Comprehensive Metabolic Panel Stat Lab 07/19/24 18:04 Completed Drug Screen,Urine Stat Lab 07/19/24 18:06 Completed Lactate (Lactic Acid) Stat Lab 07/20/24 08:35 Completed Lipase Stat Lab 07/19/24 18:04 Completed Lipase Stat Lab 07/20/24 07:50 Completed Lipid Panel Stat Lab 07/19/24 18:04 Completed UA, C/S IF [Urinalysis, C/S if Indicated] Stat Lab 07/19/24 18:06 Completed VBG [Venous Blood Gas] Stat Lab 07/19/24 18:04 Completed Venous Blood Gas Stat Lab 07/20/24 08:35 Completed Acetaminophen Tab [Tylenol Tab] Med 07/19/24 21:07 Discontinued 650 mg PO X1 ONE Acetaminophen Tab [Tylenol Tab] Med 07/20/24 04:21 Discontinued 650 mg PO X1 ONE LORazepam [Ativan] Med 07/20/24 04:21 Discontinued 2 mg PO X1 ONE Sodium Chloride 0.9% 1000 ml [Ns] 1,000 ml Med 07/20/24 11:27 Active IV 150 mls/hr Sodium Chloride 0.9% 1000 ml [Ns] 1,000 ml Med 07/19/24 17:53 Discontinued IV 999 mls/hr Sodium Chloride 0.9% 1000 ml [Ns] 1,000 ml Med 07/20/24 08:15 Discontinued IV 999 mls/hr Vital Signs Vital signs: Vital Signs Temperature 98.7 F 07/19/24 17:45 Pulse Rate 104 H 07/19/24 17:45 Respiratory Rate 18 07/19/24 17:45 Blood Pressure 187/124 H 07/19/24 17:45 Pulse Oximetry (%) 98 07/19/24 17:45 Oxygen Delivery Method Room Air 07/19/24 17:45 Pulse ox is 98% on room air which is adequate. Psych MDM Narrative MDM Narrative:: Patient 29-year-old who was seen yesterday and a medical workup was initiated and there is a secondary workup pending and so I have taken this on is a new patient today as he has multiple abnormalities as will be documented below. Comes in yesterday was 5158 and held for suicidal and homicidal thoughts. Through the night and this morning he is doing much better bilingual social worker has evaluated him and feels he is safe to go home with a safety plan. Unfortunately he has been drinking in the last has not taken his insulin for 7 days and therefore we have some abnormal labs as follows white count was 10.3 hemoglobin is 17.0 is hemoconcentrated. Note the previous hemoglobins are all in the 9.00 range and obviously is 17 today is significantly elevated from the baseline. pH came back at 7.30 with a pCO2 of 55 and this was done at 1800 hrs. yesterday. A repeat CHEM panel is pending at this time. Hemoglobin A1c is 13.1 this morning his urine is light in color there is 4+ glucose present urine drug screen was done yesterday which reveals positive for marijuana his alcohol level was 0.049 venous Doppler study of the right leg reveals no DVT and no abnormalities were observed. Since the patient's severely polycythemic and presumably dry because his renal function was worse on yesterday's CHEM panel presumably he is quite dehydrated and therefore the second CHEM panel is pending this morning but I am to give another liter of fluid we will check his pH and see if he is still significant dehydrated. Follow-up labs today reveal him hemoglobin of 14.3 which is down from 17 a white count of 7.6 pH is improved from 7.3-7.36 with normal pCO2. Sodium 138 which is improved from 127. BUN 22 creatinine of 1.4 note that is an improvement from 1.6 and the baseline is 0.9. Glucose also was down to 111 on the latest CHEM panel. Lactic acid was improved to 0.9. Urinalysis essentially was negative yesterday other than 4+ glucose and drug screens positive for marijuana only and alpha level was minimally elevated. Patient was complaining of some right inner thigh pain as mentioned earlier in the [place] venous Doppler ultrasound was done which was negative for DVT. Patient had several liters of fluid during the ER stay and because his creatinine is still 1.4 and not normalized and that he needs, gets more fluids I called the resident and spoke with Dr. Jones and will come down evaluate the patient for admission for probably overnight for more fluid to make sure that this patient's renal function normalizes. The obvious source of this is most likely just noncompliance with taking his insulin and alcohol abuse Patient data External records reviewed:: [facility] previous records (I reviewed yesterday's ED visit ) Clinical information provided by:: patient Social determinants that could affect healthcare access:: mental health Patient has the following chronic illnesses:: IDDM How is presenting disease/condition affected by chronic disease/condition?: exacerbated by Evaluation data The following diagnostics were reviewed and interpreted by me:: lab results and radiology exam(s) Lab and/or radiology exams considered but not ordered:: None Interpretation Summary: Ordering Physician: Laura Hernandez MD Date of Service: 07/19/24 Procedure(s): US venous doppler LE RT Accession Number(s): [id number] cc: Theo Wesley MD; Graeme Riley MD; Laura Hernandez MD~ Examination: Duplex scan of the lower extremity, unilateral right complete Date and time of exam: July 19, 2024 1837 hrs. Indications: Right thigh pain beginning 3 weeks ago Technique: Duplex scan of the extremity veins using B-mode/grayscale imaging and Doppler spectral analysis and color flow Attention is directed to internal echogenicity, compression and augmentation involving these veins, color flow assessment, spectral analysis Findings: Major deep venous structures in the extremity demonstrate normal course and caliber. There is no evidence of deep vein thrombosis. Normal color flow and spectral analysis Impression: Negative for DVT.. Dictated By: Graeme Riley MD Signed By: <Electronically signed by Graeme Riley MD in > 07/19/24 1919 Medications / Prescriptions Medications or Prescriptions considered but not ordered:: None Medication administrations:: Medication Administration History Acetaminophen (Acetaminophen 325 Mg Tablet) 650 mg PO Q6H PRN PRN Reason: Fever >101.5 Stop: 08/19/24 12:06 Amlodipine Besylate (Amlodipine Besylate 5 Mg Tablet) 10 mg PO QDAY [facility] Stop: 08/19/24 12:29 Last Admin: 07/20/24 14:30 Dose: 10 mg Documented By: IKE Aripiprazole (Aripiprazole 5 Mg Tablet) 30 mg PO QDAY [facility] Stop: 08/19/24 17:14 Chlordiazepoxide HCl (Chlordiazepoxide Hcl 25 Mg Capsule) 25 mg PO Q8HR [facility] Stop: 07/25/24 13:59 Last Admin: 07/20/24 14:31 Dose: 25 mg Documented By: IKE Dextrose (Dextrose 50%-Water Inj 50 Ml Syringe) 25 ml IV Q15MIN PRN PRN Reason: BG 50-70 responsive npo pt Stop: 08/19/24 12:15 Dextrose (Dextrose 50%-Water Inj 50 Ml Syringe) 50 ml IV Q15MIN PRN PRN Reason: BG <50 OR BG <70 & pt unresponsive Stop: 08/19/24 12:15 Glucagon (Glucagon Inj 1 Mg Vial) 1 mg IM Q15MIN PRN PRN Reason: BG <70, and no IV access Sodium Chloride (Ns) 1,000 mls @ 150 mls/hr IV .Q6H40M ONE; Protocol Stop: 07/20/24 18:06 Last Admin: 07/20/24 11:57 Dose: 150 mls/hr Documented By: MP Insulin Glargine (Insulin Glargine (Lantus) 5 Unit/0.05 Ml (Per 5 Units)) 10 unit SC [facility] Stop: 08/19/24 20:59 Insulin Human Lispro (Insulin Lispro (Admelog) 1 Unit/0.01 Ml Unit) 0 unit SC [facility]; Protocol Stop: 08/19/24 16:59 Lorazepam (Lorazepam 0.5 Mg Tablet) 1 mg PO Q4HR PRN PRN Reason: CIWA SCORE 7-11 Stop: 07/25/24 12:11 Lorazepam (Lorazepam 0.5 Mg Tablet) 2 mg PO Q4HR PRN PRN Reason: CIWA SCORE 12-15 Stop: 07/25/24 12:11 Lorazepam (Lorazepam 0.5 Mg Tablet) 0.5 mg PO Q4HR PRN PRN Reason: CIWA Score 2-6 Stop: 07/25/24 12:11 Lorazepam (Lorazepam 2 Mg/Ml Vial) 1 mg IV X1 PRN PRN Reason: Breakthrough Agitation Ondansetron HCl (Ondansetron Inj 2 Mg/Ml Inj 2 Ml) 4 mg IV Q6H PRN; Protocol PRN Reason: NAUSEA OR VOMITING Stop: 08/19/24 12:06 Pantoprazole Sodium ([facility] 40 Mg [facility]) [facility] Stop: 08/20/24 08:59 Sertraline HCl (Sertraline Hcl 25 Mg Tablet) 50 mg PO HS [facility] Stop: 08/19/24 20:59 Discontinued Medications Acetaminophen (Acetaminophen 325 Mg Tablet) 650 mg PO X1 ONE Stop: 07/19/24 21:08 Last Admin: 07/19/24 21:09 Dose: 650 mg Documented By: EE Acetaminophen (Acetaminophen 325 Mg Tablet) 650 mg PO X1 ONE Stop: 07/20/24 04:22 Last Admin: 07/20/24 04:36 Dose: 650 mg Documented By: EE Amlodipine Besylate (Amlodipine Besylate 5 Mg Tablet) 5 mg PO X1 PRN PRN Reason: SBP >160 Buspirone HCl (Buspirone Hcl 5 Mg Tablet) 20 mg PO X1 PRN PRN Reason: AGITATION OR ANXIETY Sodium Chloride (Ns) 1,000 mls @ 999 mls/hr IV .Q1H1M ONE Stop: 07/19/24 18:53 Last Infusion: 07/19/24 20:50 Dose: Infused Documented By: Admin: 07/19/24 18:44 Dose: 999 mls/hr Documented By: GM Sodium Chloride (Ns) 1,000 mls @ 999 mls/hr IV .Q1H1M ONE Stop: 07/20/24 09:15 Last Infusion: 07/20/24 09:50 Dose: Infused Documented By: Admin: 07/20/24 08:31 Dose: 999 mls/hr Documented By: AVM Lorazepam (Lorazepam 0.5 Mg Tablet) 2 mg PO X1 ONE Stop: 07/20/24 04:22 Last Admin: 07/20/24 04:35 Dose: 2 mg Documented By: EE Sertraline HCl (Sertraline Hcl 25 Mg Tablet) 25 mg PO HS M[facility] Stop: 08/19/24 20:59 Ziprasidone (Ziprasidone 20 Mg Capsule) 20 mg PO HS MARCELINO Stop: 08/19/24 20:59 See above Consultations Consultation(s) initiated? (list below): Yes Consultation #1 (Physician, Specialty, Details): I spoke with resident Dr. Jones working with Dr. Arreguin. Discussed patients PMHx, HPI, ED course, exam findings, labs, and radiology results. The hospitalist agree to accept the patient for admission. Time: 11:27 Diagnosis Psych Differential Diagnosis: chronic schizophrenia, suicidal ideation, bipolar disorder, depression, drug-induced psychotic disorder and acute anxiety Most likely diagnosis given after review of the tests above:: Acute kidney injury Diabetes Acute dehydration Polycthemia Metabilic acidosis History of ETOH abuse Admission Indicated Admission indicated?: indicated Admission Request Was there a request for admission?: Yes Admission Attestation Admission request attestation: Discussed case with [] from Hospitalist service regarding admission. Discussed patients ED course, exam findings, labs, and radiology results. The Hospitalist [agrees,declines] to accept the patient for admission. Disposition Plan Disposition Plan: Admit Discharge Plan Plan Patient Disposition: Admit Acute Care w/in Hospital Disposition Comment: Hospitalist Problem List Clinical Impression: Acute kidney injury, Diabetes mellitus with hyperglycemia, Acute dehydration, Polycythemia, Metabolic acidosis, History of ETOH abuse
[2024-07-20] MEDS: SODIUM CHLORIDE 0.9% 1000 ML 1,000 ML 999 ML IV (08:31)
[2024-07-20 08:37] LABS: Alanine Aminotransferase 12 U/L (10-49); Alkaline Phosphatase 100 U/L (46-116); Anion Gap 5 (7-16); Aspartate Amino Transferase 13 U/L (0-34); BUN/Creatinine Ratio 16 Ratio (12-20); Bilirubin,Total 0.3 mg/dL (0.3-1.2); Blood Urea Nitrogen 22 mg/dL (9-23); Calcium 10.1 mg/dL (8.3-10.6); Calcium (Corrected) 10.1 mg/dL (8.5-10.1); Chloride 105 mMol/L (98-107); Creatinine (Component) 1.4 mg/dL (0.6-1.3); Estimated Creatinine Clearance 74.2 mL/min (>60); Glucose 111 mg/dL (74-106); Lipase 38 U/L (12-53); Osmolality,Calculated 279 (275-295); Potassium 4.5 mMol/L (3.4-5.1); Sodium 138 mMol/L (136-145); eGFR > 60 See Note
[2024-07-20 08:49] LABS: Base Excess, Venous 1 (-3-3); O2 Saturation, Venous 68 % (96-97); PCO2, Venous 48 mmHg (36-56); PO2, Venous 36 mmHg (15-58); pH, Venous 7.36 (7.33-7.66)
[2024-07-20 08:50] LABS: Basophils # (Auto) 0.1 Thou/mm3 (0.0-0.2); Basophils % (Auto) 1 % (0-2.5); Eosinophils # (Auto) 0.3 Thou/mm3 (0.0-0.5); Eosinophils % (Auto) 4 % (0-10); Hematocrit 42.1 % (41.0-53.0); Hemoglobin 14.3 g/dL (13.5-16.0); Immature Granulocytes % (Auto) 0 % (0-0); Immature Granulocytes Auto 0.02 Thou/mm3 (0.00-0.00); Lymphocytes # (Auto) 2.6 Thou/mm3 (1.0-4.8); Lymphocytes % (Auto) 34 % (10-50); Mean Corpuscular Hemoglobin 29.9 pg (25.0-35.0); Mean Corpuscular Volume 88 fL (80-100); Monocytes # (Auto) 0.6 Thou/mm3 (0.0-0.8); Monocytes % (Auto) 8 % (0-12); Neutrophils # (Auto) 4.1 Thou/mm3 (1.8-7.7); Neutrophils % (Auto) 53 % (37-80); Nucleated Red Blood Cell % 0 /100 WBC (0); Platelet Count 371 Thou/mm3 (140-440); Red Blood Count 4.79 Miln/mm3 (4.50-5.90); White Blood Count 7.6 Thou/mm3 (3.8-10.6)
[2024-07-20 08:51] LABS: Lactate (Lactic Acid) 0.9 mMol/L (0.4-2.0)
--- NOTE | 2024-07-20 11:43 | PC.CC ---
Patient is a 29 year-old male who presented to the hospital for possible DKA and pain in the right leg that began two weeks ago. While being evaluated by SHABBIR Rodriguez the patient reported he was having suicidal and homicidal ideations. Patient was placed on a 1799 at 1830 on 07/19/2024. Sommer met with patient [id number] to complete assessment. ASW introduced self, role, and reason for assessment. ASW disclosed limits of confidentiality as well. Patient appeared alert and oriented to self, place, and situation. At bedside was patient?s father Niki Wesley who patient provided consent to remain in the room during assessment. Patient?s mood appeared euthymic. Patient?s thought process was linear and organized. No signs of delusions, paranoid or V/h. Patient lives with his father and is able to ambulate independently and complete his own ADLs. Patient reports yesterday he consumed approximately six beers and began to feel depressed. Patient stated he made suicidal and homicidal statements but had no plan or intention. Patient denied past suicidal attempts and denied currently having suicidal and homicidal ideations. Patient denied past suicide attempts. Patient denies having visual and auditory hallucinations. Per patient, he has a mental health diagnosis of Schizophrenia, Major Depressive Disorder, and PTSD. The patient is connected to [facility] ([facility]). The patient is seen by psychiatrist, Dr. Cm and therapist, Windy. Patient was last seen by the psychiatrist last week and has another appointment in 4 weeks. Patient denies ever being placed on a 5150-hold. Collateral: The following information is collateral that was provided by patient?s father, Niki Wesley. The patient has been struggling with the of his mother that occurred 7 years ago. The patient appeared to be depressed yesterday the father believes because the patient drank alcohol and then took his psychotropic medication. The patient is compliant with his medication and is followed by [facility]. The patient resides with his father and they are each other?s support system. Upon discharge patient plans to return home with his father. ambulatory services representative to follow-up with any discharge needs.
[2024-07-20] MEDS: SODIUM CHLORIDE 0.9% 1000 ML 1,000 ML 150 ML IV (11:57)
--- NOTE | 2024-07-20 12:09 | XR_ITS ---
Examination: AP chest single view TECHNIQUE: AP portable upright chest single view Exam date and time: July 20, 2024 1247 hours INDICATIONS: Chest pain today FINDINGS: Scarring at the left lateral costophrenic angle Normal heart size Old left-sided rib fractures No interval pneumonia or pulmonary edema IMPRESSION: No interval pneumonia or pulmonary edema
--- NOTE | 2024-07-20 12:36 | PC.NURSE ---
Meal given to pt. Pt. in [facility] cooperating, quiet. Provider at BS and orders placed Pt. understandss he is to be admitted for hyperglycemia
--- NOTE | 2024-07-20 13:45 | ESHP_ITS ---
Documentation for date of: 07/20/24 [facility] History of Present Illness Chief complaint: Generalized weakness History of present illness: 29-year-old male with past medical history of insulin-dependent diabetes mellitus since the age of 6, bipolar disorder, hypertension, depression, anxiety, schizophrenia, previous suicidal attempt presented to the hospital with chief complaints of generalized weakness and lower extremity pain since 2 days. Reported that recently for the past 1 week he is feeling low, depressed and is not compliant with his medication. Day before admission patient had 6 to 8 cans of 12 ounces beer. Also reported that he is having suicidal intentions along with intentions of hurting others. Reported that he was recently started on lithium a week ago and since then he is feeling more depressed and having more suicidal ideations due to which he stopped taking lithium. Stated that today he is feeling better with no further suicidal ideation or intentions of hurting others. Denies fever, shortness of breath, burning micturition, cough, abdominal pain, palpitations, change in urine output. Also reported that he is having headaches since yesterday. ED Course: -Initial vitals were blood pressure 187/134 mmHg, pulse rate 104 bpm, respiratory rate 18/min, SpO2 98% with room air. -Labs significant for CBC is within normal limits, BUN 22, creatinine 1.4, BUN 22, electrolytes are within normal limits, LFTs within normal limits, triglycerides 221, rest of the lipid panel is within normal limits, lipase 38, beta hydroxybutyrate 0.2 mmol/L. Urinalysis showed 1+ proteinuria, 4+ glucosuria. Urine toxicology tested positive for marijuana. Ethyl alcohol is 49.6 mg/dl -In the ED, patient was given normal saline, lorazepam. -Patient was admitted for acute kidney injury, uncontrolled diabetes mellitus. Past medical history: Insulin-dependent diabetes mellitus, bipolar disorder, depression, hypertension, anxiety, schizophrenia, history of pneumonia Past surgical history: Underwent surgery for left lung pneumonia, per patient Social history: Alcohol, 6 to 8 cans of 12 ounces beer 3 times in a week, marijuana 2 puffs every day, denies other illicit drug abuse or tobacco. Review of Systems Constitutional Comments: Constitutional: No Weight Change, No Fever, No Chills, No Night Sweats, Fatigue, Malaise ENT/Mouth: No Hearing Changes, No Ear Pain, No Nasal Congestion, No Sinus Pain, No Hoarseness, No sore throat, No Rhinorrhea, No Swallowing Difficulty Eyes: No Eye Pain, No Swelling, No Redness, No Foreign Body, No Discharge, No Vision Changes Cardiovascular: No Chest Pain, No SOB, No PND, No Dyspnea on Exertion, No Orthopnea, No Edema, No Palpitations Respiratory: No Cough, No Sputum, No Wheezing, No Dyspnea Gastrointestinal: No Nausea, No Vomiting, No Diarrhea, No Constipation, No Pain, No Heartburn, No Anorexia, No Dysphagia, No Hematochezia, No Melena, No Flatulence, No Jaundice Genitourinary: No Dysuria, No Urinary Frequency, No Hematuria, No Urinary Incontinence, No Urgency, No Flank Pain, No Urinary Flow Changes, No Hesitancy Musculoskeletal: No Arthralgias, No Myalgias, No Joint Swelling, No Joint Stiffness, No Back Pain, No Neck Pain, No Injury History Skin: No Skin Lesions, No Pruritis Neuro: Generalised Weakness, No Numbness, No Paresthesias, No Loss of Consciousness, No Syncope, No Dizziness, Headache, No Coordination Changes, No Recent Falls Exam Vital Signs Temp Pulse Resp BP Pulse Ox O2 Del Method 97.7 F 84 18 170/86 H 98 Room Air 07/20/24 12:21 07/20/24 12:21 07/20/24 12:21 07/20/24 12:21 07/20/24 12:21 07/20/24 12:21 Narrative Exam General: Awake. Moderately built and nourished. HEENT: Normocephalic, atraumatic, mucous membranes moist. Heart: Regular rate and rhythm, no murmurs. Lungs: Clear to auscultation with no wheezing or crackles. Abdomen: Soft, nondistended, nontender, positive bowel sounds. ?No guarding or rebound tenderness. Neurologic: Alert and oriented x3, no gross neurological deficit, and patient able to move all 4 extremities. Extremities: No edema. Skin: No rash or ecchymoses. Surgical scar noted on back of left side of chest extending into the anterior aspect. Suicidal cuts noted on left forearm. Results: Labs 07/21/24 04:33 07/21/24 04:33 Labs: Short CBC 07/19/24 07/20/24 Range/Units 18:04 08:35 WBC 10.3 7.6 (3.8-10.6) Thou/mm3 Hgb 17.0 H 14.3 D (13.5-16.0) g/dL Hct 45.4 42.1 (41.0-53.0) % Plt Count 516 H 371 D (140-440) Thou/mm3 BMP 07/19/24 07/20/24 18:04 07:50 Sodium 127 L 138 D Potassium 4.4 4.5 Chloride 93 L 105 Carbon Dioxide 25.3 28.0 BUN 22 22 Creatinine 1.7 H 1.4 H Glucose 357 H 111 H D Calcium 10.2 10.1 Liver Function 07/19/24 07/20/24 Range/Units 18:04 07:50 Total Bilirubin 0.2 L 0.3 (0.3-1.2) mg/dL AST 17 13 (0-34) U/L ALT 16 12 (10-49) U/L Alkaline Phosphatase 146 H 100 D (46-116) U/L Albumin 5.0 4.0 D (3.5-5.0) gm/dL Urine 07/19/24 Range/Units 18:06 Urine Color Colorless A (Lt Yel-Yel) Urine Clarity Clear (Clear/Hazy) Urine pH 6.0 (5.0-7.0) Ur Specific [place] 1.007 (1.001-1.035) Urine Protein 1+ A (Neg - Trace) Urine Glucose (UA) 4+ A (Negative) ABG Interpretation ABG results: 07/19/24 07/20/24 18:04 08:35 VBG pH 7.30 L 7.36 VBG pCO2 55 48 VBG pO2 22 36 VBG Base Excess -1 1 Quality Measures Quality Measures none Medications Home Medications and Allergies Home Medications ?Medication ?Instructions ?Recorded ?Confirmed ?Type chlorthalidone 25 mg tablet 25 mg PO QDAY 11/04/19 07/20/24 History insulin glargine 100 unit/mL (3 30 unit subcut QDAY 11/04/19 07/20/24 History mL) subcutaneous pen (Basaglar KwikPen U-100 Insulin) insulin regular human 100 unit/mL 10 unit subcut TID 11/04/19 07/20/24 History injection solution (Humulin R Regular U-100 Insulin) lisinopril 40 mg tablet 40 mg PO QDAY 11/04/19 07/20/24 History buspirone 30 mg tablet 30 mg PO QHSPRN PRN Anxiety 12/18/22 07/20/24 History sertraline 100 mg tablet 100 mg PO QHSPRN PRN DEPRESSION 12/18/22 07/20/24 History ziprasidone HCl 80 mg capsule 80 mg PO QHSPRN PRN ANTIPSYCHOTIC 12/18/22 07/20/24 History trazodone 50 mg tablet 50 mg PO HS 07/20/24 07/20/24 History Allergies Allergy/AdvReac Type Severity Reaction Status Date / Time cephalexin Allergy Severe RASH Verified 03/14/21 14:45 amoxicillin Allergy Verified 11/14/22 10:44 Visit Medications Acetaminophen (Acetaminophen 325 Mg Tablet) 650 mg PO Q6H PRN PRN Reason: Fever >101.5 Stop: 08/19/24 12:06 Amlodipine Besylate (Amlodipine Besylate 5 Mg Tablet) 10 mg PO QDAY [facility] Stop: 08/19/24 12:29 Buspirone HCl (Buspirone Hcl 5 Mg Tablet) 20 mg PO X1 PRN PRN Reason: AGITATION OR ANXIETY Chlordiazepoxide HCl (Chlordiazepoxide Hcl 25 Mg Capsule) 25 mg PO Q8HR MARCELINO Stop: 07/25/24 13:59 Dextrose (Dextrose 50%-Water Inj 50 Ml Syringe) 25 ml IV Q15MIN PRN PRN Reason: BG 50-70 responsive npo pt Stop: 08/19/24 12:15 Dextrose (Dextrose 50%-Water Inj 50 Ml Syringe) 50 ml IV Q15MIN PRN PRN Reason: BG <50 OR BG <70 & pt unresponsive Stop: 08/19/24 12:15 Glucagon (Glucagon Inj 1 Mg Vial) 1 mg IM Q15MIN PRN PRN Reason: BG <70, and no IV access Sodium Chloride (Ns) 1,000 mls @ 150 mls/hr IV .Q6H40M ONE; Protocol Stop: 07/20/24 18:06 Last Admin: 07/20/24 11:57 Dose: 150 mls/hr Insulin Glargine (Insulin Glargine (Lantus) 5 Unit/0.05 Ml (Per 5 Units)) 10 unit SC HS [facility] Stop: 08/19/24 20:59 Insulin Human Lispro (Insulin Lispro (Admelog) 1 Unit/0.01 Ml Unit) 0 unit SC [facility]; Protocol Stop: 08/19/24 16:59 Lorazepam (Lorazepam 0.5 Mg Tablet) 1 mg PO Q4HR PRN PRN Reason: CIWA SCORE 7-11 Stop: 07/25/24 12:11 Lorazepam (Lorazepam 0.5 Mg Tablet) 2 mg PO Q4HR PRN PRN Reason: CIWA SCORE 12-15 Stop: 07/25/24 12:11 Lorazepam (Lorazepam 0.5 Mg Tablet) 0.5 mg PO Q4HR PRN PRN Reason: CIWA Score 2-6 Stop: 07/25/24 12:11 Lorazepam (Lorazepam 2 Mg/Ml Vial) 1 mg IV X1 PRN PRN Reason: Breakthrough Agitation Ondansetron HCl (Ondansetron Inj 2 Mg/Ml Inj 2 Ml) 4 mg IV Q6H PRN; Protocol PRN Reason: NAUSEA OR VOMITING Stop: 08/19/24 12:06 Pantoprazole Sodium (Pantoprazole 40 Mg Tablet) 40 mg PO QDAY [facility] Stop: 08/20/24 08:59 Sertraline HCl (Sertraline Hcl 25 Mg Tablet) 25 mg PO HS [facility] Stop: 08/19/24 20:59 Discontinued Medications Acetaminophen (Acetaminophen 325 Mg Tablet) 650 mg PO X1 ONE Stop: 07/19/24 21:08 Last Admin: 07/19/24 21:09 Dose: 650 mg Acetaminophen (Acetaminophen 325 Mg Tablet) 650 mg PO X1 ONE Stop: 07/20/24 04:22 Last Admin: 07/20/24 04:36 Dose: 650 mg Amlodipine Besylate (Amlodipine Besylate 5 Mg Tablet) 5 mg PO X1 PRN PRN Reason: SBP >160 Sodium Chloride (Ns) 1,000 mls @ 999 mls/hr IV .Q1H1M ONE Stop: 07/19/24 18:53 Last Infusion: 07/19/24 20:50 Dose: Infused Sodium Chloride (Ns) 1,000 mls @ 999 mls/hr IV .Q1H1M ONE Stop: 07/20/24 09:15 Last Infusion: 07/20/24 09:50 Dose: Infused Lorazepam (Lorazepam 0.5 Mg Tablet) 2 mg PO X1 ONE Stop: 07/20/24 04:22 Last Admin: 07/20/24 04:35 Dose: 2 mg Assessment & Plan Plan 29-year-old male with past medical history of insulin-dependent diabetes mellitus since the age of 6, bipolar disorder, hypertension, depression, anxiety, schizophrenia, previous suicidal attempt presented to the hospital with chief complaints of generalized weakness and lower extremity pain since 2 days and admitted in the hospital for uncontrolled diabetes mellitus and TYLER # Uncontrolled hyperglycemia # History of insulin-dependent diabetes mellitus, type I # Medication noncompliance -Presented to the hospital with generalized weakness since 1 week -Also reported that he was not compliant with his insulin and misses the doses very often -Denies fever, burning micturition, cough, shortness of breath. -Patient had insulin dependent diabetes mellitus since the age of 6. -Does not follow-up with his PCP regularly and reported that his PCP is from [facility]. -HbA1c as of 07/19/2024 is 13.1. -CBC is within normal limits and urinalysis showed 4+ glucosuria. Beta hydroxybutyrate is negative. VBG is within normal limits. -Patient received 2 L of NS in the ED Plan -Started on insulin glargine 10 units subcutaneous daily at night -Started on insulin sliding scale, ACHS -Hypoglycemic protocol in place -Started on low carbohydrate diet. -Referred to dietitian. # Acute kidney injury, resolving Likely due to dehydration secondary to uncontrolled diabetes mellitus and continued with all alcohol consumption with poor oral intake -Denies change in urine output -Baseline creatinine is 0.8 in 2022 -Creatinine at the time of admission on 07/19/2024 is 1.7 > 07/20,Cr 1.4. Plan -Patient received 2 L of NS bolus in the ED -Patient was started on IV maintenance fluids at 75 mL/h -Will continue to monitor renal functions -Will renally dose medications and avoid nephrotoxic medications. # Alcohol abuse # Alcohol withdrawal -Reported that he is drinking 6-8 beers in a day for 3 times in a week -Last alcohol consumption is on 07/18/2024 -Ethyl alcohol concentration at the time of admission is 49.6 mg/deciliter -Patient is complaining of headache Plan -Received a dose of lorazepam in the ED -Started on chlordiazepoxide 25 Mg p.o. 3 times daily -Started on CIWA protocol # History of hypertension -Patient did not mention any history of hypertension -On medications review, patient was using lisinopril in November 2023 -Noted to have blood pressure of 187/124 mmHg at the time of admission -Likely due to combined alcohol withdrawal and untreated hypertension Plan -As patient's blood pressures are currently high started on amlodipine -Will continue to monitor blood pressures and titrate medications accordingly. # History of depression # History of anxiety # History of bipolar # History of schizophrenia # History of suicidal attempt at the age of 13 -Patient is on antidepressants and antipsychotics. Drug in compliance -At the time of admission patient stated that he had suicidal ideation and also feeling like hurting others -Patient was recently started on lithium 1 week before the day of admission and stopped it as he felt the symptoms of worsening -On examination, suicidal cuts are present on the left forearm Plan -Started on sertraline 50 Mg, aripiprazole 30 Mg at bedtime daily -Consulted Dr. Rivera for recommendations regarding antipsychotics. Hospital Maintenance: Dispo: MedSurg DVT ppx: SCD GI ppx: Not needed Diet: Low-sodium diet IV lines: Peripheral Code status: Full code Patient plan of care was discussed with the attending physician, Dr. Arreguin and senior resident Dr. Rickie Lynn, PGY1 Attending Provider Attestation/Addendum I reviewed labs, imaging, EKG, home medications and prior available records. Face to face evaluation was performed by me. I have personally examined the patient and discussed assessment and plan with the IM team. I reviewed the resident note and agree with the plan with exceptions as below. TYLER Marijuana abuse Alcohol abuse Suicidal ideation Uncontrolled diabetes mellitus with hyperglycemia, insulin-dependent Hypertension History of depression History of schizophrenia Continue IV hydration Monitor for alcohol withdrawal. [facility] protocol Counseled the patient regarding the importance of alcohol and marijuana abstinence Monitor kidney function. Avoid nephrotoxins. Resume home medications for depression/schizophrenia. Start insulin Lantus plus sliding scale insulin. Monitor fingersticks Suicidal precautions Crisis team evaluation prior to discharge Outpatient psychiatric follow-up
[2024-07-20] MEDS: amLODIPine BESYLATE 5 MG TABLET 10 MG PO (14:30)
[2024-07-20] MEDS: chlordiazePOXIDE HCl 25 MG CAPSULE PO ×2 (14:31→21:20)
[2024-07-20] MEDS: INSULIN LISPRO (AdmeLOG) 1 UNIT/0.01 ML UNIT SC (18:27)
[2024-07-20] MEDS: ARIPiprazole 5 MG TABLET 30 MG PO (19:10)
[2024-07-20] MEDS: hydrALAZINE INJ 20 MG/ML VIAL 10 MG IV (20:01)
[2024-07-20] MEDS: LORazepam 0.5 MG TABLET PO (20:01)
[2024-07-20] MEDS: INSULIN GLARGINE (Lantus) 5 UNIT/0.05 ML (PER 5 UNITS) 10 UNIT SC (21:20)
[2024-07-20] MEDS: SERTRALINE HCL 25 MG TABLET 50 MG PO (21:20)
[2024-07-20] MEDS: traZODone HCL 50 MG TABLET PO (21:55)
[2024-07-20] MEDS: cloNIDine HCL 0.1 MG TABLET PO (21:55)
[2024-07-21] VITALS (7 sets, daily range): BP systolic 122–173; BP diastolic 78–105; PULSE 78–90; RESP 15–18; TEMP 36.1–36.6; O2SAT 95–99; BMI 33.6
[2024-07-21] MEDS: chlordiazePOXIDE HCl 25 MG CAPSULE PO ×2 (05:00→14:11)
[2024-07-21 05:52] LABS: Basophils # (Auto) 0.1 Thou/mm3 (0.0-0.2); Basophils % (Auto) 1 % (0-2.5); Eosinophils # (Auto) 0.4 Thou/mm3 (0.0-0.5); Eosinophils % (Auto) 5 % (0-10); Hematocrit 38.8 % (41.0-53.0); Hemoglobin 13.3 g/dL (13.5-16.0); Immature Granulocytes % (Auto) 0 % (0-0); Immature Granulocytes Auto 0.02 Thou/mm3 (0.00-0.00); Lymphocytes # (Auto) 2.2 Thou/mm3 (1.0-4.8); Lymphocytes % (Auto) 29 % (10-50); Mean Corpuscular HGB Conc 34.3 g/dl (31.0-37.0); Mean Corpuscular Hemoglobin 30.2 pg (25.0-35.0); Mean Corpuscular Volume 88 fL (80-100); Monocytes # (Auto) 0.6 Thou/mm3 (0.0-0.8); Monocytes % (Auto) 9 % (0-12); Neutrophils # (Auto) 4.1 Thou/mm3 (1.8-7.7); Neutrophils % (Auto) 56 % (37-80); Nucleated Red Blood Cell % 0 /100 WBC (0); Platelet Count 325 Thou/mm3 (140-440); RDW Standard Deviation 40.5 fL (35.1-43.9); White Blood Count 7.4 Thou/mm3 (3.8-10.6)
[2024-07-21 06:33] LABS: Anion Gap 6 (7-16); BUN/Creatinine Ratio 15 Ratio (12-20); Blood Urea Nitrogen 18 mg/dL (9-23); Calcium 9.6 mg/dL (8.3-10.6); Carbon Dioxide 24.8 mMol/L (20.0-31.0); Chloride 105 mMol/L (98-107); Creatinine (Component) 1.2 mg/dL (0.6-1.3); Estimated Creatinine Clearance 86.6 mL/min (>60); Glucose 120 mg/dL (74-106); Magnesium 1.7 mg/dL (1.6-2.6); Osmolality,Calculated 274 (275-295); Phosphorous 4.1 mg/dL (2.4-5.1); Potassium 3.9 mMol/L (3.4-5.1); Sodium 136 mMol/L (136-145); Thyroid Stimulating Hormone 1.51 uIU/mL (0.55-4.78); eGFR > 60 See Note
[2024-07-21] MEDS: INSULIN LISPRO (AdmeLOG) 1 UNIT/0.01 ML UNIT SC ×2 (08:22→11:53)
--- NOTE | 2024-07-21 08:34 | XR_ITS ---
Examination: Retroperitoneal ultrasound, complete Technique: Multiple high resolution grayscale images of the retroperitoneum obtained, including kidneys and bladder. Exam date and time:July 21, 2024 0948 hours INDICATIONS: Uncontrolled hypertension several years FINDINGS: Right kidney 13.0 x 0.5 x 7.1 cm renal cortex 2.4 cm Left kidney 12.1 x 6.6 x 5.8 cm cortex 2.7 cm Mild bilateral renal parenchymal scar formation No hydronephrosis No bladder mass or bladder calculi Bladder prevoid month 279 cc postvoid volume 19 cc Normal prostate IMPRESSION: Mild bilateral renal parenchymal scar formation, no hydronephrosis Given the patient's history of hypertension, consider renal Doppler sonography follow-up including assessment peak systolic arterial velocities and calculation renal aortic ratios to assess for renal artery stenosis
[2024-07-21] MEDS: PANTOPRAZOLE 40 MG TABLET PO (09:36)
[2024-07-21] MEDS: ARIPiprazole 5 MG TABLET 30 MG PO (09:36)
[2024-07-21] MEDS: THIAMINE INJ 100 MG/ML VIAL 2 ML IVP (09:37)
[2024-07-21] MEDS: Magnesium Sulfate 2 GM Ivpb 2 GM/50 ML BAG IV (09:37)
[2024-07-21] MEDS: amLODIPine BESYLATE 5 MG TABLET 10 MG PO (09:38)
--- NOTE | 2024-07-21 10:45 | ESCONSULT_ITS ---
HPI Data of Consult Requesting Physician: Taiwo Arreguin MD Admitting Provider: Taiwo Arreguin MD Attending Provider: Taiwo Arreguin MD Primary Care Provider: Theo Wesley MD Consult Narrative History of present illness: 29-year-old male with past medical history of DM1 since the age of 6, bipolar disorder, hypertension, depression, anxiety, schizophrenia, previous suicidal attempt presented to the hospital with chief complaints of generalized weakness and lower extremity pain since 2 days. Reported that for the past 1 week he is feeling low, depressed and is not compliant with his medication, he also started recently taking lithium and afterwards he reported that he started having suicidal intentions along with intentions of hurting others, symptoms resolved after stopping lithium. Patient was admitted for TYLER and uncontrolled DM, neurology consulted regarding antipyschotic medications, currently on sertraline and aripiprazole. Patient refers significant clinical improvement, refers having a refreshing sleep. Recommend to continue current management with sertraline and aripiprazole. cc:: cc: Taiwo Arreguin MD Review of Systems Review of Systems Systems Reviewed: All systems reviewed, normal except as documented Exam Vital Signs Temp Pulse Resp BP Pulse Ox O2 Del Method 97.5 F 84 18 173/105 H 99 Room Air 07/21/24 08:00 07/21/24 09:38 07/21/24 08:00 07/21/24 09:38 07/21/24 08:00 07/21/24 08:00 Narrative Exam GENERAL: Awake, alert and oriented. No acute distress. HEENT: Normocephalic, atraumatic and nontender.? Pupils are equal and reactive to light and accommodation.? Oral mucosa are moist. NECK: Supple without adenopathy. Traquea midline. Nontender, carotid pulse 2+ bilaterally without bruits, no JVD.? CHEST: Heart rate and rythm normal, no murmurs, gallops auscultated. S1 & 2 normal insensity. Nontender on palpation, no deformity and no crepitus. LUNGS: Lung sounds are clear.? No wheezing, rales or ronchi.? No intercostal subcostal retraction. Room air ABDOMEN: Soft,symmetric , nontender, no guarding or rebound tenderness. No abnormal masses palpated.? No pulsatile masses or bruits.? Bowel sounds are normoactive in all 4 quadrants. EXTREMITIES: Nontender.? No pitting edema.? No cyanosis.? Patient is able to move all 4 extremities. SKIN: No rashes noted. NEURO:? Cranial nerves intact.? There is no focalization.? GCS is 15. PSYCH: Appropriate mood and affect, no suicidal ideation Results Labs 07/21/24 04:33 07/21/24 04:33 Labs: Short CBC 07/21/24 Range/Units 04:33 WBC 7.4 (3.8-10.6) Thou/mm3 Hgb 13.3 L (13.5-16.0) g/dL Hct 38.8 L (41.0-53.0) % Plt Count 325 D (140-440) Thou/mm3 BMP 07/21/24 04:33 Sodium 136 Potassium 3.9 D Chloride 105 Carbon Dioxide 24.8 BUN 18 Creatinine 1.2 Glucose 120 H Calcium 9.6 ABG Interpretation ABG results: 07/19/24 07/20/24 18:04 08:35 VBG pH 7.30 L 7.36 VBG pCO2 55 48 VBG pO2 22 36 VBG Base Excess -1 1 Quality Measures Quality Measures none Medications Home Medications and Allergies Home Medications ?Medication ?Instructions ?Recorded ?Confirmed ?Type buspirone 30 mg tablet 30 mg PO QHSPRN PRN Anxiety 12/18/22 07/20/24 History sertraline 100 mg tablet 100 mg PO QHSPRN PRN DEPRESSION 12/18/22 07/20/24 History ziprasidone HCl 80 mg capsule 80 mg PO QHSPRN PRN ANTIPSYCHOTIC 12/18/22 07/20/24 History trazodone 50 mg tablet 50 mg PO HS 07/20/24 07/20/24 History Allergies Allergy/AdvReac Type Severity Reaction Status Date / Time cephalexin Allergy Severe RASH Verified 03/14/21 14:45 amoxicillin Allergy Verified 11/14/22 10:44 Visit Medications Acetaminophen (Acetaminophen 325 Mg Tablet) 650 mg PO Q6H PRN PRN Reason: Fever >101.5 Stop: 08/19/24 12:06 Amlodipine Besylate (Amlodipine Besylate 5 Mg Tablet) 10 mg PO QDAY [facility] Stop: 08/20/24 08:59 Last Admin: 07/21/24 09:38 Dose: 10 mg Aripiprazole (Aripiprazole 5 Mg Tablet) 30 mg PO QDAY [facility] Stop: 08/19/24 17:14 Last Admin: 07/21/24 09:36 Dose: 30 mg Chlordiazepoxide HCl (Chlordiazepoxide Hcl 25 Mg Capsule) 25 mg PO Q8HR [facility] Stop: 07/25/24 13:59 Last Admin: 07/21/24 05:00 Dose: 25 mg Dextrose (Dextrose 50%-Water Inj 50 Ml Syringe) 25 ml IV Q15MIN PRN PRN Reason: BG 50-70 responsive npo pt Stop: 08/19/24 12:15 Dextrose (Dextrose 50%-Water Inj 50 Ml Syringe) 50 ml IV Q15MIN PRN PRN Reason: BG <50 OR BG <70 & pt unresponsive Stop: 08/19/24 12:15 Folic Acid (Folic Acid 1 Mg Tablet) 1 mg PO QDAY [facility] Stop: 08/23/24 08:59 Folic Acid (Folic Acid Inj 1 Mg/0.2 Ml) 1 mg IVP QDAY [facility] Stop: 07/24/24 08:59 Glucagon (Glucagon Inj 1 Mg Vial) 1 mg IM Q15MIN PRN PRN Reason: BG <70, and no IV access Hydralazine HCl (Hydralazine Inj 20 Mg/Ml Vial) 10 mg IV Q6HR PRN PRN Reason: SBP > 170 Stop: 08/19/24 18:16 Last Admin: 07/20/24 20:01 Dose: 10 mg Magnesium Sulfate (Magnesium Sulfate Ivpb) 2 gm in 50 mls @ 25 mls/hr IV X1 ONE Stop: 07/21/24 10:55 Last Admin: 07/21/24 09:37 Dose: 25 mls/hr Influenza Virus Vaccine Quadrival (Influenza Virus Quadrivalent 0.5 Ml Syringe) 0.5 ml IMi .ONCE ONE Stop: 07/23/24 21:15 Insulin Glargine (Insulin Glargine (Lantus) 5 Unit/0.05 Ml (Per 5 Units)) 10 unit SC [facility] Stop: 08/19/24 20:59 Last Admin: 07/20/24 21:20 Dose: 10 unit Insulin Human Lispro (Insulin Lispro (Admelog) 1 Unit/0.01 Ml Unit) 0 unit SC [facility]; Protocol Stop: 08/19/24 16:59 Last Admin: 07/21/24 08:22 Dose: 1 unit Lorazepam (Lorazepam 0.5 Mg Tablet) 1 mg PO Q4HR PRN PRN Reason: CIWA SCORE 7-11 Stop: 07/25/24 12:11 Lorazepam (Lorazepam 0.5 Mg Tablet) 2 mg PO Q4HR PRN PRN Reason: CIWA SCORE 12-15 Stop: 07/25/24 12:11 Lorazepam (Lorazepam 0.5 Mg Tablet) 0.5 mg PO Q4HR PRN PRN Reason: CIWA Score 2-6 Stop: 07/25/24 12:11 Last Admin: 07/20/24 20:01 Dose: 0.5 mg Lorazepam (Lorazepam 2 Mg/Ml Vial) 1 mg IV X1 PRN PRN Reason: Breakthrough Agitation Ondansetron HCl (Ondansetron Inj 2 Mg/Ml Inj 2 Ml) 4 mg IV Q6H PRN; Protocol PRN Reason: NAUSEA OR VOMITING Stop: 08/19/24 12:06 Pantoprazole Sodium (Pantoprazole 40 Mg Tablet) 40 mg PO QDAY [facility] Stop: 08/20/24 08:59 Last Admin: 07/21/24 09:36 Dose: 40 mg Sertraline HCl (Sertraline Hcl 25 Mg Tablet) 50 mg PO [facility] Stop: 08/19/24 20:59 Last Admin: 07/20/24 21:20 Dose: 50 mg Thiamine HCl (Thiamine Inj 100 Mg/Ml Vial 2 Ml) 100 mg IVP QDAY [facility] Stop: 07/24/24 06:00 Last Admin: 07/21/24 09:37 Dose: 100 mg Thiamine HCl (Thiamine 100 Mg Tablet) 100 mg PO QDAY [facility] Stop: 08/23/24 08:59 Trazodone HCl (Trazodone Hcl 50 Mg Tablet) 50 mg PO [facility] Stop: 08/19/24 21:34 Last Admin: 07/20/24 21:55 Dose: 50 mg Discontinued Medications Acetaminophen (Acetaminophen 325 Mg Tablet) 650 mg PO X1 ONE Stop: 07/19/24 21:08 Last Admin: 07/19/24 21:09 Dose: 650 mg Acetaminophen (Acetaminophen 325 Mg Tablet) 650 mg PO X1 ONE Stop: 07/20/24 04:22 Last Admin: 07/20/24 04:36 Dose: 650 mg Amlodipine Besylate (Amlodipine Besylate 5 Mg Tablet) 5 mg PO X1 PRN PRN Reason: SBP >160 Amlodipine Besylate (Amlodipine Besylate 5 Mg Tablet) 10 mg PO QDAY [facility] Stop: 08/19/24 12:29 Last Admin: 07/20/24 14:30 Dose: 10 mg Buspirone HCl (Buspirone Hcl 5 Mg Tablet) 20 mg PO X1 PRN PRN Reason: AGITATION OR ANXIETY Clonidine (Clonidine Hcl 0.1 Mg Tablet) 0.1 mg PO X1 ONE Stop: 07/20/24 21:45 Last Admin: 07/20/24 21:55 Dose: 0.1 mg Sodium Chloride (Ns) 1,000 mls @ 999 mls/hr IV .Q1H1M ONE Stop: 07/19/24 18:53 Last Infusion: 07/19/24 20:50 Dose: Infused Sodium Chloride (Ns) 1,000 mls @ 999 mls/hr IV .Q1H1M ONE Stop: 07/20/24 09:15 Last Infusion: 07/20/24 09:50 Dose: Infused Sodium Chloride (Ns) 1,000 mls @ 150 mls/hr IV .Q6H40M ONE; Protocol Stop: 07/20/24 18:06 Last Admin: 07/20/24 11:57 Dose: 150 mls/hr Labetalol HCl (Labetalol Inj 5 Mg/Ml Vial 20 Ml) 10 mg IVP X1 ONE Stop: 07/20/24 21:35 Last Admin: 07/21/24 00:18 Dose: Not Given Lorazepam (Lorazepam 0.5 Mg Tablet) 2 mg PO X1 ONE Stop: 07/20/24 04:22 Last Admin: 07/20/24 04:35 Dose: 2 mg Sertraline HCl (Sertraline Hcl 25 Mg Tablet) 25 mg PO [facility] Stop: 08/19/24 20:59 Ziprasidone (Ziprasidone 20 Mg Capsule) 20 mg PO [facility] Stop: 08/19/24 20:59 Assessment & Plan Plan 29-year-old male with past medical history of DM1 since the age of 6, bipolar disorder, hypertension, depression, anxiety, schizophrenia, previous suicidal attempt presented to the hospital with chief complaints of generalized weakness and lower extremity pain since 2 days. Reported that for the past 1 week he is feeling low, depressed and is not compliant with his medication, he also started recently taking lithium and afterwards he reported that he started having suicidal intentions along with intentions of hurting others, symptoms resolved after stopping lithium. Patient was admitted for TYLER and uncontrolled DM, neurology consulted regarding antipyschotic medications, currently on sertraline and aripiprazole. Patient refers significant clinical improvement, refers having a refreshing sleep. Recommend to continue current management with sertraline and aripiprazole. #Bipolar disorder #Schizofrenia #Anxiety -Reported that he started having suicidal intentions along with intentions of hurting others, symptoms resolved after stopping lithium. Currently denies such thoughts -Currently on sertraline and aripiprazole. -Recommendation: Continue current management Patient's care discussed with attending physician, Dr Nicole Anders MD PGY3 Attending Provider Attestation/Addendum I personally have seen and examined the patient at the bedside and agree with resident findings, assessment and plan of care. Continue current management including sertraline and antidepressant as he is doing better. Continue to follow-up him closely for any worsening side effect including EPS
--- NOTE | 2024-07-21 11:00 | CHAP ---
Patient was visited by the Spiritual Care Volunteer who prayed for them. (Volunteer was in the hospital from 09:45-11:00)
--- NOTE | 2024-07-21 11:18 | PD.RESDS ---
Planned Discharge Date 07/21/24 DS: Providers Provider Date of admission: 07/20/24 11:59 Primary care physician: Theo Wesley MD Admitting Provider: Taiwo Arreguin MD Attending Provider on Admission: Taiwo Arreguin MD Consults: 07/20/24 14:34 Referral Registered Dietitian Routine Comment: diabetic education 07/20/24 17:14 Consult to Neurology / Tele-Neurology Routine Comment: for psychosis and suicidal ideation Consulting Provider: Marciano Rivera 07/20/24 21:14 Health Equity Referral - Knowledge Deficit Routine Comment: Positive screening for knowledge deficit needs. Health Equity Referral - Nutrition Routine Comment: Positive screening for nutrition needs. Health Equity Referral - Utilities Routine Comment: Positive screening for utility assistance needs. Attending Provider on DC: Luiz Lynn MD Discharging Provider: Luiz Lynn MD DS: Diagnosis Problem List Completed Was Problem List Reviewed/Reconciled?: Yes Hospital Course Hospital Course Hospital course: 29-year-old male with past medical history of DM1 since the age of 6, bipolar disorder, hypertension, depression, anxiety, schizophrenia, previous suicidal attempt presented to the hospital with chief complaints of generalized weakness and lower extremity pain since 2 days and admitted for Acute kidney injury, uncontrolled diabetes mellitus, uncontrolled hypertension and depression with suicidal ideation. Labs significant for CBC is within normal limits, BUN 22, creatinine 1.4, BUN 22, electrolytes are within normal limits, LFTs within normal limits, triglycerides 221, rest of the lipid panel is within normal limits, lipase 38, beta hydroxybutyrate 0.2 mmol/L. Urinalysis showed 1+ proteinuria, 4+ glucosuria. Urine toxicology tested positive for marijuana. Ethyl alcohol is 49.6 mg/dl. HbA1c is 31. Dr. Rivera was consulted and appreciated her recommendations. Patient was treated with antipsychotics, IV fluids during the hospital stay. During the hospital course, TYLER is resolved and social worker assistant referral was done Patient was discharged to home with the following medications and recommendations. -Follow-up with PCP within 1 week of discharge. Please follow-up with the [facility] with Dr. Lynn. Call [phone] to make an appointment. -Continue buspirone, sertraline, trazodone, ziprasidone, chlorthalidone -Stop lisinopril, take losartan amlodipine 10 Mg + amlodipine 10mg at night -Take Insulin glargine every night, insulin Lispro three times with meals. -Take medications as prescribed. -Return to ED if symptoms persist or return # Uncontrolled hyperglycemia # History of insulin-dependent diabetes mellitus, type I # Medication noncompliance # Acute kidney injury, resolving # Alcohol abuse # Alcohol withdrawal # History of hypertension # History of depression # History of anxiety # History of bipolar # History of schizophrenia # History of suicidal attempt at the age of 13 Patient plan of care was discussed with the attending physician, Dr. Rodríguez Lynn, PGY1 Time Spent with Patient Time attestation: Total time spent providing and/or coordinating discharge services: Exam Vital Signs Temp Pulse Resp BP Pulse Ox O2 Del Method 97.5 F 84 18 173/105 H 99 Room Air 07/21/24 08:00 07/21/24 09:38 07/21/24 08:00 07/21/24 09:38 07/21/24 08:00 07/21/24 08:00 Narrative Exam General: Awake. Moderately built and nourished. HEENT: Normocephalic, atraumatic, mucous membranes moist. Heart: Regular rate and rhythm, no murmurs. Lungs: Clear to auscultation with no wheezing or crackles. Abdomen: Soft, nondistended, nontender, positive bowel sounds. ?No guarding or rebound tenderness. Neurologic: Alert and oriented x3, no gross neurological deficit, and patient able to move all 4 extremities. Extremities: No edema. Skin: No rash or ecchymoses. Surgical scar noted on back of left side of chest extending into the anterior aspect. Suicidal cuts noted on left forearm. Discharge Plan Plan Patient Disposition: HOME (Self Care) Disposition Comment: Hospitalist Patient condition on transfer: Stable Care Plan Goals: -Follow-up with PCP within 1 week of discharge. Please follow-up with the [facility] with Dr. Lynn. Call [phone] to make an appointment. -Continue buspirone, sertraline, trazodone, ziprasidone, chlorthalidone -Stop lisinopril, take losartan amlodipine 10 Mg + amlodipine 10mg at night -Take Insulin glargine every night, insulin Lispro three times with meals. -Take medications as prescribed. -Return to ED if symptoms persist or return Prescriptions/Referrals Prescriptions/Med Rec: New losartan 50 mg tablet 50 mg PO QDAY 30 Days Qty: 30 0RF amlodipine 10 mg tablet 10 mg PO HS 30 Days Qty: 30 0RF insulin degludec 200 unit/mL (3 mL) insulin pen 10 unit subcut HS 30 Days Qty: 1.5 0RF (DME) pen needle, diabetic [Pen Needle] 29 gauge x 1/2 needle See Rx Instructions .Route Qty: 100 0RF Rx Instructions: As directed (DME) blood-glucose meter Kit See Rx Instructions .Route Qty: 1 0RF Rx Instructions: As directed (DME) Blood Glucose Test Strip See Rx Instructions .Route Qty: 50 0RF Rx Instructions: As directed (DME) lancets Misc See Rx Instructions .Route Qty: 100 0RF Rx Instructions: As directed chlorthalidone 25 mg tablet 25 mg PO QDAY 30 Days Qty: 30 0RF (DME) FreeStyle Shannan 2 Sensor Kit See Rx Instructions .Route Qty: 2 1RF Rx Instructions: As directed (DME) FreeStyle Shannan 2 Yolyn Misc See Rx Instructions .Route Qty: 1 0RF Rx Instructions: As directed insulin lispro 100 unit/mL insulin pen 5 unit subcut TID 30 Days Qty: 4.5 0RF Continued ziprasidone HCl 80 mg Capsule 80 mg PO QHSPRN PRN (Reason: ANTIPSYCHOTIC) Rx Instructions: give with food (meal/snack) sertraline 100 mg Tablet 100 mg PO QHSPRN PRN (Reason: DEPRESSION) buspirone 30 mg Tablet 30 mg PO QHSPRN PRN (Reason: Anxiety) trazodone 50 mg tablet 50 mg PO HS Patient Comments: TAKE 1 TABLET BY MOUTH ONCE A DAY AT BEDTIME NEEDED Discontinued hydroxyzine HCl 50 mg tablet 50 mg PO Q6H PRN (Reason: anxiety) Qty: 20 0RF chlorthalidone 25 mg Tablet 25 mg PO QDAY Humulin R Regular U-100 Insuln 100 unit/mL Solution 10 unit SUBCUT TID lisinopril 40 mg Tablet 40 mg PO QDAY insulin glargine [Basaglar KwikPen U-100 Insulin] 100 unit/mL (3 mL) Insulin Pen 30 unit SUBCUT QDAY Referrals: Theo Wesley MD [Primary Care Provider] - Patient/Caregiver Discharge Instructions Meds to Beds: Yes Discharge Activity: resume usual activities Education Materials: Diabetes Exercise Plan, Diabetes Carbs Fats Protein Print Language: Luxembourgish Stand Alone Forms: Annamarie Award Info., Patient Portal Info Letter, Work/Release Restrictions Discharge Order Discharge Orders: Discharge (Routine); Ordered 07/21/24 Ordered By: Angel Jones Quality Discharge Quality Measures VTE prophylaxis MD Attestestation MD Attestation I reviewed labs, imaging, EKG, home medications and prior available records. Face to face evaluation was performed by me. I have personally examined the patient and discussed assessment and plan with the IM team. I reviewed the resident note and agree with the plan with exceptions as below. TYLER Marijuana abuse Alcohol abuse Suicidal ideation Uncontrolled diabetes mellitus with hyperglycemia, insulin-dependent Hypertension History of depression History of schizophrenia Encourage PO hydration Counseled the patient regarding the importance of alcohol and marijuana abstinence Creatinine improved. Repeat BMP in 1 week Resume home medications for depression/schizophrenia. Resume home insulin. Ensure medication compliance. Crisis team evaluation prior to discharge: Cleared the patient and he has no active suicidal ideation. He has a safety plan and appointment with his therapist in the afternoon of the day of discharge Outpatient psychiatric follow-up Resume home antihypertensive treatment Time spent is 40 minutes. More than 50% of the time was spent on patient education and coordination of care.
--- NOTE | 2024-07-21 11:41 | PC.SS ---
Patient is a 29 year-old male who presented to the hospital for possible DKA and pain in the right leg. While being evaluated by SHABBIR Rodriguez in the ED, the patient reported he was having suicidal and homicidal ideation. Patient was then placed on a 1799 in the ED and later admitted to [facility] for medical needs. At this time, attending Dr. Arreguin has informed the patient is medically cleared and medical team has requested a mental health evaluation for the patient. Mery met with patient [id number] to complete assessment. ASW introduced self, role, and reason for assessment. ASW disclosed limits of confidentiality as well. Patient appeared alert and oriented to self, place, and situation. Patient was pleasant and cooperative during the assessment. Patient?s thought process was linear and organized. No signs of delusions, paranoia or visual hallucinations observed. Patient informs he lives at home with his father and family. Patient confirmed demographic information. Patient reports he is able to ambulate independently and complete his own ADL?s. Patient reports he made suicidal and homicidal statements but had no plan or intention on acting upon. Patient reported feeling stressed during that time and informed he believed those statements were made as he had been off of his medication and had consumed alcohol. Patient denied currently having suicidal and homicidal ideations. Patient denies having visual and auditory hallucinations. Patient denied past suicidal attempts. Patient denies ever being placed on a 5150-hold. Patient reports he consumes alcohol on occasion, his preference is to drink beer. Patient reports he recently started consuming marijuana this past month or two. Patient reports he take ?one to two puffs?. Patient denies being a heavy substance consumer. Patient reports he has a mental health diagnosis of Schizophrenia, Major Depressive Disorder, and PTSD. The patient reports being connected to [facility]. The patient is seen by psychiatrist, Dr. Cm and a therapist, named Windy. Patient was last seen by the psychiatrist last week and has another appointment in 4 weeks. After clinical consultation with [facility], it is determined that the patient does not meet criteria for a 5150 hold. Patient is agreeable with formulating a safety plan. Patient was scheduled for a mental health follow up appointment for 07/21/24 at 4pm with his assigned therapist Windy. Patient was provided with community resources and given emergency contact information to the [facility] and local authorities. Patient?s significant other, Sierra Valle was agreeable in participating in the patient?s safety plan. Sierra agrees to assist with providing support to the patient for the next 72 hours and ensuring patient follow up with his mental health services. Sierra reports no firearms present in the home. Sierra agreeable to assist with patient?s transportation home at time of discharge. Medical team and bed side nurse updated on discharge plan.
[2024-07-21] MEDS: Lisinopril 20 MG TABLET 40 MG PO (11:53)
[2024-07-21] MEDS: FOLIC ACID INJ 1 MG/0.2 ML IVP (11:54)
== END 2024-07-21 15:08 | disposition home or self-care (01) ==
LOC: SERX 07-20 11:37 → S3SX 07-21 06:53 → SERHOLD 07-21 10:26
PROVIDERS: Emergency Medicine; Nurse Practitioner Primary Care; Registered Nurse General Practice; Admitting Provider Student in an Organized Health Care Education/Training Program; Emergency Provider Emergency Medicine; PCP Family Medicine; Visit Provider Student in an Organized Health Care Education/Training Program
DX: N17.9 Acute kidney failure, unspecified (principal); E11.65 Type 2 diabetes mellitus with hyperglycemia; R45.851 Suicidal ideations; R45.850 Homicidal ideations; I10 Essential (primary) hypertension; F41.9 Anxiety disorder, unspecified; F31.9 Bipolar disorder, unspecified; F20.9 Schizophrenia, unspecified; F12.10 Cannabis abuse, uncomplicated; F10.239 Alcohol dependence with withdrawal, unspecified; E87.21 Acute metabolic acidosis; E86.0 Dehydration; E10.65 Type 1 diabetes mellitus with hyperglycemia; D75.1 Secondary polycythemia
CPT/HCPCS: 36415; 71045; 76770; 80048; 80053; 80061; 80307; 80320; 81001; 82010; 82803; 83036; 83605; 83690; 83735; 84100; 84156; 84443; 85025; 87040; 93971; 96127; 96360; 96361; 99285; G0378; J0360; J1815; J3411; J3475; J3490; J7030; A9270; G0480

== ENCOUNTER 2024-11-03 12:46 | Emergency (ER) | payer MEDICAID, SELFPAY ==
[2024-11-03 12:46] VITALS: BMI 30.1
[2024-11-03 12:55] VITALS: BP 173/102; PULSE 100; RESP 18; TEMP 36.9; O2SAT 99
--- NOTE | 2024-11-03 13:01 | XR_ITS ---
Examination: Foot, right, 3 views Technique: AP, oblique, lateral views foot, 3 views Date and time of exam: 05/05/2025 1315 hours INDICATIONS: Patient fell today with injury of the right foot, right foot pain FINDINGS: Fractures proximal and midportion proximal phalanx first digit No significant displacement No dislocation Fractures proximal aspect proximal phalanx second digit without significant displacement Fractures proximal aspect proximal phalanx third digit without significant displacement IMPRESSION: Fractures proximal phalanges first second and third digits as above
--- NOTE | 2024-11-03 13:03 | EDRME_ITS ---
Rapid Medical Screening Exam [facility] Arrival date/time: 11/03/24 12:46 29-year-old male with a history of diabetes, schizophrenia, presents to the emergency room with a chief complaint of suicidal ideation. Patient states his plan is to take a lot of pills to end his suffering. Patient also states he has uncontrolled diabetes and hit his right foot causing a lot of bruising and pain to the area. I have greeted and performed a focused initial assessment of this patient. A comprehensive ED assessment and evaluation of the patient, analysis of all test results, and completion of the medical decision making process will be conducted by additional ED providers. Chief Complaint: Suicidal Vital signs: Vital Signs Temperature 98.5 F 11/03/24 12:55 Pulse Rate 100 11/03/24 12:55 Respiratory Rate 18 11/03/24 12:55 Blood Pressure 173/102 H 11/03/24 12:55 Pulse Oximetry (%) 99 11/03/24 12:55 Oxygen Delivery Method Room Air 11/03/24 12:55 Vital signs reviewed by provider: Yes
[2024-11-03 13:18] LABS: Lactate (Lactic Acid) 3.2 mMol/L (0.4-2.0)
[2024-11-03 13:21] LABS: Basophils # (Auto) 0.1 Thou/mm3 (0.0-0.2); Basophils % (Auto) 1 % (0-2.5); Eosinophils # (Auto) 0.2 Thou/mm3 (0.0-0.5); Eosinophils % (Auto) 2 % (0-10); Hematocrit 39.5 % (41.0-53.0); Hemoglobin 14.2 g/dL (13.5-16.0); Immature Granulocytes % (Auto) 0 % (0-0); Immature Granulocytes Auto 0.03 Thou/mm3 (0.00-0.00); Lymphocytes # (Auto) 3.7 Thou/mm3 (1.0-4.8); Lymphocytes % (Auto) 29 % (10-50); Mean Corpuscular HGB Conc 35.9 g/dl (31.0-37.0); Mean Corpuscular Hemoglobin 31.8 pg (25.0-35.0); Mean Corpuscular Volume 88 fL (80-100); Monocytes % (Auto) 8 % (0-12); Neutrophils # (Auto) 7.7 Thou/mm3 (1.8-7.7); Neutrophils % (Auto) 61 % (37-80); Nucleated Red Blood Cell % 0 /100 WBC (0); Platelet Count 299 Thou/mm3 (140-440); RDW Standard Deviation 39.8 fL (35.1-43.9); Red Blood Count 4.47 Miln/mm3 (4.50-5.90); White Blood Count 12.7 Thou/mm3 (3.8-10.6)
[2024-11-03 13:25] LABS: Beta Hydroxybutyrate 0.2 mmol/L (<0.6)
[2024-11-03 13:44] VITALS: BP 160/97; PULSE 98; RESP 18; TEMP 37.1; O2SAT 100
[2024-11-03 13:50] LABS: Alanine Aminotransferase 15 U/L (10-49); Albumin, Serum 4.5 gm/dL (3.5-5.0); Albumin/Globulin Ratio 1.2 (1.2-2.2); Alcohol, Blood Medical 286.8 mg/dL (0-10.0); Alkaline Phosphatase 105 U/L (46-116); Anion Gap 14 (7-16); Aspartate Amino Transferase 20 U/L (0-34); BUN/Creatinine Ratio 16 Ratio (12-20); Bilirubin,Total 0.5 mg/dL (0.3-1.2); Blood Urea Nitrogen 18 mg/dL (9-23); Calcium 9.3 mg/dL (8.3-10.6); Calcium (Corrected) 9.3 mg/dL (8.5-10.1); Carbon Dioxide 22.2 mMol/L (20.0-31.0); Chloride 90 mMol/L (98-107); Creatinine (Component) 1.1 mg/dL (0.6-1.3); Estimated Creatinine Clearance 89.4 mL/min (>60); Globulin 3.8 gm/dL (2.3-3.5); Glucose 216 mg/dL (74-106); Osmolality,Calculated 262 (275-295); Potassium 4.4 mMol/L (3.4-5.1); Procalcitonin 0.42 ng/ml (0.0-0.49); Sodium 126 mMol/L (136-145); Total Protein 8.3 gm/dL (5.7-8.2); eGFR > 60 See Note
--- NOTE | 2024-11-03 15:46 | EDNOTE_ITS ---
ED Psych RME/HPI General Chief Complaint: Suicidal Stated Complaint: SI Time Seen by Provider: 11/03/24 18:27 Arrival date/time: 11/03/24 12:46 RME / HPI RME / HPI Narrative: 11/03/24 12:46 29-year-old male with a history of diabetes, schizophrenia, presents to the emergency room with a chief complaint of suicidal ideation. Patient states his plan is to take a lot of pills to end his suffering. Patient also states he has uncontrolled diabetes and hit his right foot causing a lot of bruising and pain to the area. I have greeted and performed a focused initial assessment of this patient. A comprehensive ED assessment and evaluation of the patient, analysis of all test results, and completion of the medical decision making process will be conducted by additional ED providers. DR. GUNN MAIN ED EVALUATION: 29 year old male with past medical history significant for bipolar disorder, hypertension, and diabetes presents to the Emergency Department with complaint of suicidal ideation, patient states that he took some pills last night but not sure which ones they are. He states that his girlfriend, who normally helps him with his medications, left him for reasons he does not want to discuss. He also states he found promethazine from his friend and drank some of that plus alcohol 3-5 of the big ones . He states he fell a few days ago and his toes are purple. Related Data Home Medications ?Medication ?Instructions ?Recorded ?Confirmed buspirone 30 mg tablet 30 mg PO QHSPRN PRN Anxiety 12/18/22 11/04/24 sertraline 100 mg tablet 100 mg PO QHSPRN PRN DEPRESS ION 12/18/22 11/04/24 ziprasidone HCl 80 mg capsule 80 mg PO QHSPRN PRN ANTI PSYCHOTIC 12/18/22 11/04/24 trazodone 50 mg tablet 50 mg PO HS 07/20/24 5 amlodipine 10 mg tablet 10 mg PO DAILY 11/04/2412/24 aripiprazole 30 mg tablet 30 mg PO HS 11/04/24 5 chlorthalidone 25 mg tablet 25 mg PO DAILY 11/04/24 insulin glargine 100 unit/mL (3 30 unit subcut QAM 12/2411/04/24 mL) subcutaneous pen (Basaglar KwikPen U-100 Insulin) lisinopril 40 mg tablet 40 mg PO DAILY 11/04/2412/24 Previous Rx's ?Medication ?Instructions ?Recorded blood sugar diagnostic (Blood #50 ea 07/21/24 Glucose Test strips) blood-glucose meter #1 ea 07/21/24 flash glucose scanning reader #1 ea 07/21/24 (FreeStyle Shannan 2 Murray) flash glucose sensor (FreeStyle #2 ea 07/21/24 Shannan 2 Sensor kit) lancets #100 ea 07/21/24 pen needle, diabetic 29 gauge x #100 ea 07/21/24 1/2 (Pen Needle) Allergies Allergy/AdvReac Type Severity Reaction Status Date / Time cephalexin Allergy Severe RASH Verified 03/14/21 14:45 amoxicillin Allergy Verified 11/14/22 10:44 Review of Systems Review of Systems Systems Reviewed: All systems reviewed, normal except as documented Past Medical History Past Medical History CARDIAC: Positive Hypertension ENDOCRINE: Positive Endocrine Disorders and Diabetes Mellitus Type 2 PSYCHO/SOCIAL: Positive Schizophrenia, Recreational Drug Use, Depression, Anxiety and Post Traumatic Stress Disorder Family History FAMILY HISTORY: Positive Family Cardiac Disorders Social History SMOKING STATUS: Current some day smoker SUBSTANCE USE: does not use 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 ED Exam Narrative Physical exam: GENERAL APPEARANCE: AxOx4, generally well-appearing, no acute distress. HEENT: NC, AT. MMM. EOMI, clear conjunctiva, oropharynx clear. NECK: Supple without lymphadenopathy. No stiffness or restricted ROM. HEART: Normal rate and regular rhythm, normal S1/S1, no m/r/g LUNGS: CTAB, moving air well. No crackles or wheezes are heard. ABDOMEN: Soft, nontender, nondistended with good bowel sounds heard. BACK: No midline C/T/L spine pain or deformity, No CVAT, no obvious deformity. EXTREMITIES: Without cyanosis, clubbing or edema. MUSCULOSKELETAL: FROM of all major joints, no chest tenderness NEUROLOGICAL: Grossly nonfocal. Alert and oriented, moving all 4 extremities. CN not formally tested but appear grossly intact. Observed to ambulate with normal gait. Skin: Warm and dry without any rash. Significant ecchymosis all 5 MTPs. Course Course Course Narrative: 1600: After mental health evaluation, patient is going to be placed on a 5150- hold for Danger to Self, [facility] Facilities for placement is pending. Quality Measures none Orders Category Date Time Status Bedside Blood Glucose ACHS Care 11/04/24 07:56 Active Bedside Blood Glucose ACHS Care 11/04/24 07:57 Active Splint / Immobilizer STAT Care 11/03/24 15:48 Active Suicide precautions NOW Care 11/03/24 13:01 Active Diabetic [Diet Carbohydrate Consistent] Diet 11/04/24 Breakfast Active XR foot comp RT min 3V Stat Exams 11/03/24 13:01 Completed Alcohol, Blood Medical Stat Lab 11/03/24 13:11 Completed Beta Hydroxybutyrate Stat Lab 11/03/24 13:11 Completed Blood Culture (Lab) Stat Lab 11/03/24 13:06 Received CBC Stat Lab 11/03/24 13:11 Completed CMP [Comprehensive Metabolic Panel] Stat Lab 11/03/24 13:11 Completed Drug Screen,Urine Stat Lab 11/03/24 18:45 Completed Lactate (Lactic Acid) Stat Lab 11/03/24 13:11 Completed Lactic Acid, 3 HR Stat Lab 11/03/24 16:32 Completed Procalcitonin Stat Lab 11/03/24 13:11 Completed UA [Urinalysis] Stat Lab 11/03/24 18:45 Completed Urine Culture Stat Lab 11/03/24 18:45 Received ARIPiprazole [Abilify] Med 11/04/24 21:00 Active 30 mg PO HS Acetaminophen Tab [Tylenol ES Tab] Med 11/03/24 23:51 Discontinued 1,000 mg PO X1 ONE BusPIRone HCL [Buspar] Med 11/04/24 21:00 Active 30 mg PO HS PRN Chlorthalidone [Thalitone] Med 11/04/24 09:00 Active 25 mg PO DAILY Dextrose 50% Syr [D50w Syringe Abboject] Med 11/04/24 07:57 Active 25 ml IV Q15MIN PRN Dextrose 50% Syr [D50w Syringe Abboject] Med 11/04/24 07:57 Active 50 ml IV Q15MIN PRN Glucagon Inj Med 11/04/24 07:57 Active 1 mg IM Q15MIN PRN HYDROcodone/APAP 10/325 [Crosby 10/325] Med 11/04/24 05:59 Discontinued 1 tab PO X1 ONE INSULIN LISPRO (AdmeLOG) [HumaLOG] Med 11/04/24 11:30 Active See Protocol SC AC Ibuprofen Tab [Motrin Tab] Med 11/03/24 15:48 Discontinued 600 mg PO X1 ONE Insulin Glargine Inj [Lantus Inj] Med 11/04/24 09:00 Active 30 unit SC QAM LORazepam [Ativan] Med 11/03/24 23:51 Discontinued 0.5 mg PO X1 ONE Lisinopril [Prinivil] Med 11/04/24 09:00 Active 40 mg PO DAILY Sertraline HCl [Zoloft] Med 11/04/24 21:00 Active 100 mg PO HS PRN Ziprasidone [Geodon] Med 11/04/24 07:51 Pending 80 mg PO QHSPRN PRN amLODIPine BESYLATE [Norvasc] Med 11/04/24 09:00 Active 10 mg PO DAILY sertraline Med 11/04/24 21:00 Discontinued 100 mg PO HS PRN traZODone HCL [Desyrel] Med 11/04/24 21:00 Active 50 mg PO HS Vital Signs Vital signs: Vital Signs Temperature 98.5 F 11/03/24 12:55 Pulse Rate 100 11/03/24 12:55 Respiratory Rate 18 11/03/24 12:55 Blood Pressure 173/102 H 11/03/24 12:55 Pulse Oximetry (%) 99 11/03/24 12:55 Oxygen Delivery Method Room Air 11/03/24 12:55 Psych MDM Narrative MDM Narrative:: IKat am scribing for and in the presence of Dr. Gunn. Patient data External records reviewed:: [facility] previous records (Reviewed last admission discharge dated 07/21/24, patient admitted for the following: Acute dehydration) Clinical information provided by:: patient Social determinants that could affect healthcare access:: mental health Patient has the following chronic illnesses:: bipolar disorder, hypertension, and diabetes How is presenting disease/condition affected by chronic disease/condition?: exacerbated by Evaluation data The following diagnostics were reviewed and interpreted by me:: lab results and radiology exam(s) Lab and/or radiology exams considered but not ordered:: none Interpretation Summary: Procedure(s): XR foot comp RT min 3V Accession Number(s): [id number] cc: Rod Hart; Graeme Riley MD~ Examination: Foot, right, 3 views Technique: AP, oblique, lateral views foot, 3 views Date and time of exam: 05/05/2025 1315 hours INDICATIONS: Patient fell today with injury of the right foot, right foot pain FINDINGS: Fractures proximal and midportion proximal phalanx first digit No significant displacement No dislocation Fractures proximal aspect proximal phalanx second digit without significant displacement Fractures proximal aspect proximal phalanx third digit without significant displacement IMPRESSION: Fractures proximal phalanges first second and third digits as above Dictated By: Graeme Riley MD Medications / Prescriptions Medications or Prescriptions considered but not ordered:: none Medication administrations:: Medication Administration History Amlodipine Besylate (Amlodipine Besylate 5 Mg Tablet) 10 mg PO DAILY [facility] Stop: 12/04/24 08:59 Last Admin: 11/04/24 08:23 Dose: 10 mg Documented By: JAYDEN Aripiprazole (Aripiprazole 5 Mg Tablet) 30 mg PO HS [facility] Stop: 12/04/24 20:59 Buspirone HCl (Buspirone Hcl 5 Mg Tablet) 30 mg PO HS PRN PRN Reason: ANXIETY Stop: 12/04/24 20:59 Chlorthalidone (Chlorthalidone 25 Mg Tablet (Non-Formulary)) 25 mg PO DAILY MARCELINO Stop: 12/04/24 08:59 Dextrose (Dextrose 50%-Water Inj 50 Ml Syringe) 25 ml IV Q15MIN PRN PRN Reason: BG 50-70 responsive npo pt Stop: 12/04/24 07:56 Dextrose (Dextrose 50%-Water Inj 50 Ml Syringe) 50 ml IV Q15MIN PRN PRN Reason: BG <50 OR BG <70 & pt unresponsive Stop: 12/04/24 07:56 Glucagon (Glucagon Inj 1 Mg Vial) 1 mg IM Q15MIN PRN PRN Reason: BG <70, and no IV access Insulin Glargine (Insulin Glargine (Lantus) 5 Unit/0.05 Ml (Per 5 Units)) [facility] Stop: 12/04/24 08:59 Last Admin: 11/04/24 08:40 Dose: 30 unit Documented By: JAYDEN Co-signed By: [facility] Insulin Human Lispro (Insulin Lispro (Admelog) 1 Unit/0.01 Ml Unit) 0 unit SC AC [facility]; Protocol Stop: 12/04/24 11:29 Lisinopril (Lisinopril 20 Mg Tablet) 40 mg PO DAILY MARCELINO Stop: 12/04/24 08:59 Last Admin: 11/04/24 08:19 Dose: 40 mg Documented By: JAYDEN Sertraline HCl (Sertraline Hcl 25 Mg Tablet) 100 mg PO HS PRN PRN Reason: DEPRESSION Stop: 12/04/24 20:59 Trazodone HCl (Trazodone Hcl 50 Mg Tablet) 50 mg PO HS MARCELINO Stop: 12/04/24 20:59 Ziprasidone (Ziprasidone 20 Mg Capsule) 80 mg PO QHSPRN PRN PRN Reason: ANTIPSYCHOTIC Stop: 12/04/24 07:50 Discontinued Medications Acetaminophen (Acetaminophen 500 Mg Tablet) 1,000 mg PO X1 ONE Stop: 11/03/24 23:52 Last Admin: 11/04/24 02:04 Dose: 1,000 mg Documented By: OFELIA Hydrocodone Bitart/Acetaminophen (Hydrocodone/Apap 10/325 Tab) 1 tab PO X1 ONE Stop: 11/04/24 06:00 Last Admin: 11/04/24 06:22 Dose: 1 tab Documented By: OFELIA Ibuprofen (Ibuprofen Tab 600 Mg Tablet) 600 mg PO X1 ONE Stop: 11/03/24 15:49 Last Admin: 11/03/24 16:58 Dose: 600 mg Documented By: CASA Lorazepam (Lorazepam 0.5 Mg Tablet) 0.5 mg PO X1 ONE Stop: 11/03/24 23:52 Last Admin: 11/04/24 02:04 Dose: 0.5 mg Documented By: OFELIA Non-Formulary Medication (Sertraline) 100 mg PO HS PRN PRN Reason: DEPRESSION Stop: 12/04/24 20:59 see above Consultations Consultation(s) initiated? (list below): No Diagnosis Psych Differential Diagnosis: acute psychosis, chronic schizophrenia, suicidal ideation, bipolar disorder, depression, drug-induced psychotic disorder and acute anxiety Most likely diagnosis given after review of the tests above:: see below Admission Indicated Admission indicated?: not indicated Admission Request Was there a request for admission?: No Disposition Plan Disposition Plan: other (specify) (Patient signed out to night court magistrate provider, Dr. Vora, pending psychiatric placement. ) Discharge Plan Prescriptions/Referrals Prescriptions/Med Rec: No Action ziprasidone HCl 80 mg Capsule 80 mg PO QHSPRN PRN (Reason: ANTIPSYCHOTIC) Rx Instructions: give with food (meal/snack) sertraline 100 mg Tablet 100 mg PO QHSPRN PRN (Reason: DEPRESSION) buspirone 30 mg Tablet 30 mg PO QHSPRN PRN (Reason: Anxiety) chlorthalidone 25 mg tablet 25 mg PO DAILY Patient Comments: TAKE 1 TABLET BY MOUTH EVERY MORNING WITH FOOD, SEE YOUR DOCTOR FOR FURTHER REFILLS amlodipine 10 mg tablet 10 mg PO DAILY Patient Comments: TAKE 1 TABLET BY MOUTH ORALLY BEDTIME FOR 1 MONTH lisinopril 40 mg tablet 40 mg PO DAILY Patient Comments: TAKE 1 TABLET BY MOUTH EVERY DAY FOR 30 DAYS aripiprazole 30 mg tablet 30 mg PO HS Patient Comments: TAKE 1 TABLET BY MOUTH ONCE A DAY AT BEDTIME insulin glargine [Basaglar KwikPen U-100 Insulin] 100 unit/mL (3 mL) insulin pen 30 unit subcut QAM trazodone 50 mg tablet 50 mg PO HS Patient Comments: TAKE 1 TABLET BY MOUTH ONCE A DAY AT BEDTIME NEEDED (DME) pen needle, diabetic [Pen Needle] 29 gauge x 1/2 needle See Rx Instructions .Route Qty: 100 0RF Rx Instructions: As directed (DME) blood-glucose meter Kit See Rx Instructions .Route Qty: 1 0RF Rx Instructions: As directed (DME) Blood Glucose Test Strip See Rx Instructions .Route Qty: 50 0RF Rx Instructions: As directed (DME) lancets Misc See Rx Instructions .Route Qty: 100 0RF Rx Instructions: As directed (DME) FreeStyle Shannan 2 Sensor Kit See Rx Instructions .Route Qty: 2 1RF Rx Instructions: As directed (DME) FreeStyle Shannan 2 Murray Misc See Rx Instructions .Route Qty: 1 0RF Rx Instructions: As directed Referrals: Theo Wesley MD [Primary Care Provider] - In 1 week Problem List Clinical Impression: Suicidal ideation, Drug-induced psychotic disorder, Alcohol abuse Patient/Caregiver Discharge Instructions Print Language: Malagasy
--- NOTE | 2024-11-03 15:58 | PC.CC ---
Patient is a 29 year-old male who presents to the hospital for mental health evaluation for suicidal ideations with an attempt last night. ASWBrenda made [id number] contact with patient. ASW introduced self, role, and reason for visit.?Patient appeared alert and oriented to self, location, and situation. At bedside is patient?s sister, Rosalina. Patient provided consent for sister to remain in room during assessment. Patient mood was depressed as he was tearful throughout assessment; his behavior appeared disinhibited with flat affect. Thought process was linear and organized. Patient stated, ?I feel stuck between two friend, and stare in the mirror and think what can I do to get better.? Patient reports he is going through a lot mentally but was unable to elaborate what is happening. Patient reports last night he took ?a bunch of pills and promethazine? with the intention of killing himself. Patient does not remember the name of the pills he took. At the time of encounter the patient continues to feel suicidal and reports he feels like he needs help. Patient reports this is his first suicide attempt. Patient reports he has been on a 5150-hold in the past but does not recall the month and year and reason. ? Patient denies homicidal ideations, visual and auditory hallucinations. Patient reports he has a mental health diagnosis of Schizophrenia, Major Depressive Disorder, and Post-Traumatic Stress Disorder. Patient is connected to outpatient mental health services with [facility]. Patient?s psychiatrist is Dr. Cm and therapist, Windy. Patient reports he is compliant with his medication Aripiprazole 30mg, Buspirone 10mg, Diphenhydramine HCL 25mg, Sertraline 100mg, and Trazadone 50mg. Patient reports he drinks alcohol to cope with his depression. ASW explored with patient safety planning the patient reports he feels he needs help and sister agreed that her brother can use help as he continues to express suicidal ideations. ?? Upon clinical consultation with CHILD NEUROLOGIST, Camila Parrish patient will be placed on a 5150-hold for Danger to Self. ASW provided advisement to patient of 5150-hold. ASW provided update of discharge plan to [facility] Facility to office automation technician Aneta, Dr. Wright, and bedside CANDIS Fernandez. ASW to send packet to [facility] Facilities for placement via [facility].
[2024-11-03 16:15] LABS: Reflex Lactate? Y
[2024-11-03 16:38] LABS: Lactic Acid, 3 HR 2.8 mMol/L (0.4-2.0)
[2024-11-03] MEDS: IBUPROFEN TAB 600 MG TABLET PO (16:58)
[2024-11-03 17:00] VITALS: BP 141/86; PULSE 99; RESP 17; O2SAT 98
--- NOTE | 2024-11-03 18:02 | PD.EDADDENDU ---
Emergency Room Addendum Addendum Narrative: 1800: Care assumed from Dr. Wright the previous shift emergency physician. Past medical, surgical, social and family history reviewed. Vitals and home medications reviewed. Results and treatment plan discussed. I will assume the care of the patient at this time and will follow the patient, pending psychiatric placement. Please refer to the emergency department record for history and examination from initial visit. Patient was placed in observation for treatment and monitoring of psychiatric symptoms, at 1800 11/03/2024. Symptoms consist of suicidal ideation and depression. Treatment plan includes psychiatric consult, reassessments, and possible placement into psychiatric facility. The patient had access and provided personal hygiene, shower, food, water, and daily medications. 0600: Care signed out to Dr. Wright (emergency physician). Past medical, surgical, social and family history reviewed. Vitals and home medications reviewed. Results and treatment plan discussed. They will assume the care of the patient at this time and will follow the patient, pending psychiatric placement. At this time, observation has ended.
[2024-11-03 19:37] VITALS: BP 146/71; PULSE 98; RESP 19; TEMP 37.1; O2SAT 96
[2024-11-03 19:49] LABS: Collection Type, Urine Clean Catch
[2024-11-03 20:07] LABS: Bilirubin,Urine Negative (Negative); Blood,Urine 1+ (Negative); Clarity,Urine Clear (Clear/Hazy); Color,Urine Lt-Yellow (Lt Yel-Yel); Glucose, Urine 4+ (Negative); Hyaline Casts,Urine < 1 /hpf (0-1); Ketones,Urine Negative (Negative); Leukocyte Esterase,Urine Negative (Negative); Nitrite,Urine Negative (Negative); Protein,Urine 3+ (Neg - Trace); RBC,Urine 1 /hpf (0-3); Specific Gravity,Urine 1.008 (1.001-1.035); Squamous Epithelial Cell,Urine 1 /hpf (0-5); Urobilinogen,Urine Negative mg/dL (0.0-1.0); WBC,Urine 2 /hpf (0-5)
[2024-11-03 20:08] LABS: Amphetamine/Methamp Scrn,U Negative (Negative); Barbiturate Screen,Urine Negative (Negative); Benzodiazepines Screen,Urine Negative (Negative); Benzoylecgonine Screen, Ur Negative (Negative); Fentanyl Screen,Urine Negative (Negative); Opiate Screen,Urine Negative (Negative); THC Screen,Urine Positive (Negative)
[2024-11-04] VITALS (10 sets, daily range): BP systolic 125–181; BP diastolic 70–111; PULSE 78–97; RESP 16–19; TEMP 36.6–37.4; O2SAT 96–99
[2024-11-04] MEDS: LORazepam 0.5 MG TABLET PO (02:04)
[2024-11-04] MEDS: ACETAMINOPHEN 500 MG TABLET 1000 MG PO (02:04)
--- NOTE | 2024-11-04 06:11 | PD.EDADDENDU ---
Emergency Room Addendum Addendum Narrative: 0600: Care assumed from Dr. Vora, the previous shift emergency physician. Past medical, surgical, social and family history reviewed. Vitals and home medications reviewed. I will assume the care of the patient at this time, pending psychiatric placement. Please refer to the emergency department record for history and examination from initial visit.? The patient was placed in ED observation care at 11/04/2024 at 0600 hours. The patient was placed in ED observation care because of undifferentiated decompensated behavioral health evaluation, no behavioral health bed available. The patients past medical history, social history, and family history were reviewed. The plan of care will include serial examinations. While in ED observation the patient will have access to water, food, and personal hygiene. If the patient takes home medication(s), they will be continued in ED observation. Physical exam by me shows patient under no acute distress at this time. 1800: Patient was signed out to Dr. Corrigan. Past medical, surgical, social and family history reviewed. Vitals and home medications reviewed. Results and treatment plan discussed. They will assume the care of the patient at this time and will follow the patient, pending psychiatric placement. My ED observation care ended at 11/04/2024 at 1800 hours.
[2024-11-04] MEDS: HYDROcodone/APAP 10/325 TAB PO (06:22)
--- NOTE | 2024-11-04 08:01 | PC.NURSE ---
patients father at bedside
--- NOTE | 2024-11-04 08:15 | PC.NURSE ---
pharmacy contacted about missing meds
[2024-11-04] MEDS: Lisinopril 20 MG TABLET 40 MG PO (08:19)
[2024-11-04] MEDS: amLODIPine BESYLATE 5 MG TABLET 10 MG PO (08:23)
[2024-11-04] MEDS: INSULIN GLARGINE (Lantus) 5 UNIT/0.05 ML (PER 5 UNITS) 30 UNIT SC (08:40)
--- NOTE | 2024-11-04 09:11 | PC.CC ---
Rn Perinatal reviewed and updated 5150 placement packet and sent it to all accepting LPS facilities.
--- NOTE | 2024-11-04 09:32 | PC.NURSE ---
IV ATTEMPTED x 4 WITH 2 NURSES AND UNSUCCESSFUL
--- NOTE | 2024-11-04 11:33 | PC.NURSE ---
pharmacy contacted about chlorthalidone. pharmacy stated that they do not carry chlorthalidone (needs to be ordered)
[2024-11-04] MEDS: INSULIN LISPRO (AdmeLOG) 1 UNIT/0.01 ML UNIT SC ×2 (12:18→17:21)
--- NOTE | 2024-11-04 13:30 | PC.NURSE ---
chlorthalidone was brought in by family. med was taken to pharmacy by rn to verify
[2024-11-04] MEDS: ZIPRASIDONE 20 MG CAPSULE 80 MG PO (14:27)
--- NOTE | 2024-11-04 14:32 | PC.NURSE ---
spoke to pt about chlorthalidone to be brought in due to it being unavailable. pt asked rn to call sister to bring in med. rn called sister and she stated she'll bring med in a little bit
[2024-11-04] MEDS: CHLORTHALIDONE 25 MG TABLET PO (16:09)
--- NOTE | 2024-11-04 16:10 | PC.NURSE ---
pharmacy brought back chlorthalidone. adminstered to patient (see mar). chlorthalidone will be located in med room in blue box
--- NOTE | 2024-11-04 17:25 | PC.NURSE ---
pt requested to use his phone to watch videos
--- NOTE | 2024-11-04 17:27 | PC.NURSE ---
pt requested to use his phone and phone quantitative analyst marketing.
--- NOTE | 2024-11-04 19:00 | PC.CC ---
Portainer Operator received telephone call from [facility] inquiring more information for Pt. Portainer Operator provided information for caller.
--- NOTE | 2024-11-04 19:11 | PC.NURSE ---
Assumed care of patient, he is asleep at this time. 1:1 sitter at bedside
[2024-11-04] MEDS: ARIPiprazole 5 MG TABLET 30 MG PO (21:09)
[2024-11-04] MEDS: traZODone HCL 50 MG TABLET PO (21:09)
[2024-11-05] VITALS (8 sets, daily range): BP systolic 130–169; BP diastolic 80–113; PULSE 86–96; RESP 14–17; TEMP 36.6–37.1; O2SAT 98–99
--- NOTE | 2024-11-05 05:10 | PD.EDADDENDU ---
Emergency Room Addendum Addendum Narrative: I took over the care from Dr. Wright at 6 PM on 11/04/2024, see previous notes for complete H&P and ED course. Patient is waiting for psychiatric bed. At 6 AM on 11/05/2024, the care of the patient was transferred to Dr. Gould. During my watch, the patient remained stable. Richard Corrigan MD
--- NOTE | 2024-11-05 06:58 | PD.EDADDENDU ---
Emergency Room Addendum Addendum Narrative: 0600: Care assumed from Dr. Corrigan, the previous shift emergency physician. Past medical, surgical, social and family history reviewed. Vitals and home medications reviewed. I will assume the care of the patient at this time, pending LPS facility placement. The patient was placed in ED observation care at 0600 11/05/2024. While in ED observation the pt will have access to water, food, and personal hygiene. If the pt takes home medication(s), they will be continued in ED observation. Please refer to the emergency department record for history and examination from initial visit.?The following addendum documentation note is intended to reflect any pending information, findings, or radiology results not included in the patient?s initial chart. 1500: Patient has been accepted by Dr. Abrams at [facility]. EMS P/U 17:30. 1650: EMS here to transport patient. Patient has remained clinically stable throughout the emergency department visit.
--- NOTE | 2024-11-05 07:10 | PC.CC ---
Brenda RUIZ sent out referral for psychiatric placement via [facility] to [facility] facilities.
--- NOTE | 2024-11-05 07:20 | PC.NURSE ---
CALLED PHARMACY AND SPOKE TO JAILENE; THIS RN REQUESTING FOR PT'S ZIPRASIDONE 80MG PO MEDICATION, NOT LOADED IN ED PYXIS; PER JAILENE, WILL BRING MEDICATION TO ED SOON.
[2024-11-05] MEDS: INSULIN LISPRO (AdmeLOG) 1 UNIT/0.01 ML UNIT SC ×2 (07:26→11:45)
[2024-11-05] MEDS: Lisinopril 20 MG TABLET 40 MG PO (08:14)
[2024-11-05] MEDS: INSULIN GLARGINE (Lantus) 5 UNIT/0.05 ML (PER 5 UNITS) 30 UNIT SC (08:16)
[2024-11-05] MEDS: amLODIPine BESYLATE 5 MG TABLET 10 MG PO (08:17)
--- NOTE | 2024-11-05 08:19 | PC.NURSE ---
called pharmacy and spoke to tech requesting pt's ziprasidone 80mg oral med, which is not loaded in ED pyxis; per Tech, will come bring it down soon.
[2024-11-05] MEDS: ZIPRASIDONE 20 MG CAPSULE 80 MG PO (08:20)
[2024-11-05] MEDS: CHLORTHALIDONE 25 MG TABLET PO (08:23)
--- NOTE | 2024-11-05 09:10 | PC.CC ---
ASW, Brenda made face to face contact with the patient who reports to feeling better as he has been away from his problems and taking his medications. ASW explained to patient that his 5150-hold expires tomorrow and if he is not placed he will be having another mental health evaluation which he was receptive to. In addition, ASW explained to the patient that if there is a facility willing to accept him he would be sent for psychiatric services. ASW to remain available.
--- NOTE | 2024-11-05 09:52 | PC.CC ---
1003 [facility] left message for a call back. [phone] [facility] for psychiatry- patient remains in queue at all three locations. 0956 [facility] no beds available. 0954 [facility]-reports patient continues to be in queue waiting to be presented to the doctor. 0952 [facility] reports patient continues to be in queue and should have adult beds opening up today.
--- NOTE | 2024-11-05 11:07 | PC.NURSE ---
SPOKE TO RON MARKHAM RN FROM [facility] FOR RN-RN REPORT FOR POSSIBLE ACCEPTANCE TO [facility]. CLERICAL AND OFFICE SUPPORT WORKERS MADE AWARE.
[2024-11-05] MEDS: ACETAMINOPHEN 325 MG TABLET 650 MG PO (13:29)
--- NOTE | 2024-11-05 14:20 | PC.CC ---
[facility] is considering placement patient if his Blood Sugar is less than 250.
[2024-11-05] MEDS: INSULIN LISPRO (AdmeLOG) 1 UNIT/0.01 ML UNIT 10 UNIT SC (14:47)
--- NOTE | 2024-11-05 15:12 | PC.NURSE ---
Pt accepted to [facility]. Pt. BG 319 and given 10 u insulin. Will re check bg in 1 hour
--- NOTE | 2024-11-05 15:12 | PC.CC ---
Grant with [facility] provided accepting information. Dr. Abrams accepted, Unit [address] Nurse to Nurse is [phone]. ASW to arrange transportation. ASW provided accepting information to patient and called patient's sister, Rosalina to provide accepting facility information. Patient was receptive to information. ASW provided updated discharge plan to Dr. Gould, Liban Johnson, and bedside RN Nando.
--- NOTE | 2024-11-05 16:24 | PC.NURSE ---
Zoë with [facility] called for report. Report given. 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
== END 2024-11-05 16:56 ==
PROVIDERS: Nurse Practitioner Family; Emergency Provider Emergency Medicine; PCP Family Medicine
DX: R45.851 Suicidal ideations (principal); F10.10 Alcohol abuse, uncomplicated; F19.959 Other psychoactive substance use, unspecified with psychoactive substance-induced psychotic disorder, unspecified; E11.9 Type 2 diabetes mellitus without complications; F20.9 Schizophrenia, unspecified; S90.31XA Contusion of right foot, initial encounter; I10 Essential (primary) hypertension; W19.XXXA Unspecified fall, initial encounter
CPT/HCPCS: 36415; 73630; 80053; 80307; 80320; 81001; 82010; 83605; 84145; 85025; 87040; 87086; 90839; 96127; 96372; 99285; J1815; A9270; G0480

== ENCOUNTER 2025-05-02 10:24 | Emergency (ER) | payer MEDICAID, SELFPAY ==
[2025-05-02 10:39] VITALS: BP 173/104; PULSE 105; RESP 16; TEMP 36.8; O2SAT 96; BMI 28.3
--- NOTE | 2025-05-02 10:54 | PD.EDPSYCH ---
ED Psych RME/HPI General Chief Complaint: Psychiatric Symptoms Stated Complaint: MENTAL EVAL Time Seen by Provider: 05/02/25 10:54 Arrival date/time: 05/02/25 10:24 30-year-old male presents to the emergency department today the patient has hypertension schizophrenia reports he was told by his significant other/girlfriend to come to the ER for further evaluation for his anxiety Limitations: no limitations Related Data Home Medications ?Medication ?Instructions ?Recorded ?Confirmed buspirone 30 mg tablet 30 mg PO QHSPRN PRN Anxiety 12/18/22 11/04/24 sertraline 100 mg tablet 100 mg PO QHSPRN PRN DEPRESSION 12/18/22 11/04/24 ziprasidone HCl 80 mg capsule 80 mg PO QHSPRN PRN ANTIPSYCHOTIC 12/18/22 11/04/24 trazodone 50 mg tablet 50 mg PO HS 07/20/24 11/04/24 amlodipine 10 mg tablet 10 mg PO DAILY 11/04/24 11/04/24 aripiprazole 30 mg tablet 30 mg PO HS 11/04/24 11/04/24 chlorthalidone 25 mg tablet 25 mg PO DAILY 11/04/24 11/04/24 insulin glargine 100 unit/mL (3 30 unit subcut QAM 11/04/24 11/04/24 mL) subcutaneous pen (Basaglar KwikPen U-100 Insulin) lisinopril 40 mg tablet 40 mg PO DAILY 11/04/24 11/04/24 Previous Rx's ?Medication ?Instructions ?Recorded blood sugar diagnostic (Blood #50 ea 07/21/24 Glucose Test strips) blood-glucose meter #1 ea 07/21/24 flash glucose scanning reader #1 ea 07/21/24 (FreeStyle Shannan 2 Wilder) flash glucose sensor (FreeStyle #2 ea 07/21/24 Shannan 2 Sensor kit) lancets #100 ea 07/21/24 pen needle, diabetic 29 gauge x #100 ea 07/21/24 1/ (Pen Needle) Allergies Allergy/AdvReac Type Severity Reaction Status Date / Time cephalexin Allergy Severe RASH Verified 03/14/21 14:45 amoxicillin Allergy Verified 11/14/22 10:44 Review of Systems Review of Systems Systems Reviewed: All systems reviewed, normal except as documented Constitutional Constitutional: Reports system reviewed and no additional complaints, except as documented, Denies fever(s) and Denies headache(s) Eyes Eyes: Reports system reviewed and no additional complaints, except as documented and Denies blurry vision ENT Ears, Nose, Mouth, and Throat: Reports system reviewed and no additional complaints, except as documented, Denies headache(s), Denies nasal congestion and Denies nasal discharge Cardiovascular Cardiovascular: Reports system reviewed and no additional complaints, except as documented, Denies chest pain and Denies dyspnea Respiratory Respiratory: Reports system reviewed and no additional complaints, except as documented, Denies chest congestion, Denies cough and Denies dyspnea Gastrointestinal Gastrointestinal: Reports system reviewed and no additional complaints, except as documented and Denies abdominal pain Integumentary/Breasts Skin/Breast: Reports system reviewed and no additional complaints, except as documented and Denies rash Neurologic Neurologic: Reports system reviewed and no additional complaints, except as documented, Reports as per HPI and Denies headache(s) Psychiatric Psychiatric: Reports system reviewed and no additional complaints, except as documented, Denies anxiety, Denies depression, Denies hopelessness, Denies irritability, Denies panic attacks, Denies paranoia, Denies suicidal ideation, Denies tactile hallucinations and Denies visual hallucinations Past Medical History Past Medical History NEUROLOGIC: Negative Neurological Disorders CARDIAC: Positive Hypertension; Negative Cardiac Disorders or Congestive Heart Failure RESPIRATORY: Negative Chronic Obstructive Pulmonary Disease (COPD) or Asthma GASTROINTESTINAL: Negative Gastrointestinal Disorders GENITOURINARY: Negative Genitourinary Disorders or Renal Disease MUSCULOSKELETAL: Negative Musculoskeletal Disorders ENDOCRINE: Positive Endocrine Disorders, Diabetes Mellitus Type 1 and Diabetes Mellitus Type 2 HEMATOLOGIC: Negative Blood Disorders or Sickle Cell Disease PSYCHO/SOCIAL: Positive Schizophrenia, Recreational Drug Use, Depression, Anxiety and Post Traumatic Stress Disorder OTHER HISTORY: Negative Hospitalization, Autoimmune Disease, Down Syndrome, Developmental Delay, Falls, Blood Transfusions, MRSA, VRSA, Vancomycin-Resistant Enterococci, Chicken Pox, Measles, Clostridium Difficile or Cancer Family History FAMILY HISTORY: Positive Family Cardiac Disorders Social History SMOKING STATUS: Never smoker SUBSTANCE USE: does not use 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 ED Exam General Limitations: Present no limitations General appearance: Present alert and in no apparent distress Head Head exam: Present atraumatic Eye Eye exam: Present normal appearance, PERRL and EOMI ENT ENT exam: Present normal exam, normal oropharynx and mucous membranes moist Neck Neck exam: Present normal inspection, full ROM and trachea midline Chest Chest inspection: Present normal inspection and symmetric chest wall rise Respiratory Respiratory exam: Present normal lung sounds bilaterally Cardiovascular Cardiovascular exam: Present regular rate, normal rhythm and normal heart sounds Abdominal Exam Abdominal exam: Present soft and normal bowel sounds Extremities Exam Extremities exam: Present normal inspection and full ROM Back Exam Back exam: Present normal inspection and full ROM Neurological Exam Neurological exam: Present alert, oriented X3, CN II-XII intact, normal gait and reflexes normal; Absent motor sensory deficit Psychiatric Psychiatric exam: Present normal affect and normal mood; Absent depressed, agitated, anxious, flat affect, manic, homicidal ideation or suicidal ideation Skin Skin exam: Present warm, dry, intact and normal color Course Quality Measures none Vital Signs Vital signs: Vital Signs Temperature 98.2 F 05/02/25 10:39 Pulse Rate 105 H 05/02/25 10:39 Respiratory Rate 16 05/02/25 10:39 Blood Pressure 173/104 H 05/02/25 10:39 Pulse Oximetry (%) 96 05/02/25 10:39 Oxygen Delivery Method Room Air 05/02/25 10:39 O2 saturation 96% on room air within normal limits Psych MDM Narrative MDM Narrative:: 30-year-old male presents to the emergency department today the patient has hypertension schizophrenia reports he was told by his significant other/girlfriend to come to the ER for further evaluation for his anxiety Patient is a [employer] 15 answers all questions appropriately reports no suicidal or homicidal nation patient reports he feels well Patient reports he is a follow-up today with Laura at 5 PM with his counselor. As patient has no suicidal homicidal issues patient reports no acute medical complaints patient may discharge home at this time I did explain to the patient if he develops any worsening symptoms or concerns he is always welcome to return for reevaluation Patient data External records reviewed:: [facility] previous records Clinical information provided by:: patient Social determinants that could affect healthcare access:: mental health Patient has the following chronic illnesses:: Caused by mental health How is presenting disease/condition affected by chronic disease/condition?: caused by Evaluation data The following diagnostics were reviewed and interpreted by me:: other (specify) Lab and/or radiology exams considered but not ordered:: Stated not ordered Interpretation Summary: N/A Medications / Prescriptions Medications or Prescriptions considered but not ordered:: No meds Medication administrations:: No meds Consultations Consultation(s) initiated? (list below): No Diagnosis Psych Differential Diagnosis: acute psychosis, chronic schizophrenia, suicidal ideation and acute anxiety Most likely diagnosis given after review of the tests above:: Schizophrenia Admission Indicated Admission indicated?: not indicated Admission Request Was there a request for admission?: No Disposition Plan Disposition Plan: Discharge Discharge Attestation Discharge Attestation: The patient and all family members were given an opportunity to ask questions and understood the discharge instructions. Discharge instructions specifically effects, indications for sooner follow up or return to the emergency department, and the expected course of current diagnosis. Patient condition: Stable Discharge Plan Plan Patient Disposition: HOME (Self Care) Discharge Disposition comment: Stable Prescriptions/Referrals Prescriptions/Med Rec: No Action ziprasidone HCl 80 mg Capsule 80 mg PO QHSPRN PRN (Reason: ANTIPSYCHOTIC) Rx Instructions: give with food (meal/snack) sertraline 100 mg Tablet 100 mg PO QHSPRN PRN (Reason: DEPRESSION) buspirone 30 mg Tablet 30 mg PO QHSPRN PRN (Reason: Anxiety) chlorthalidone 25 mg tablet 25 mg PO DAILY Patient Comments: TAKE 1 TABLET BY MOUTH EVERY MORNING WITH FOOD, SEE YOUR DOCTOR FOR FURTHER REFILLS amlodipine 10 mg tablet 10 mg PO DAILY Patient Comments: TAKE 1 TABLET BY MOUTH ORALLY BEDTIME FOR 1 MONTH lisinopril 40 mg tablet 40 mg PO DAILY Patient Comments: TAKE 1 TABLET BY MOUTH EVERY DAY FOR 30 DAYS aripiprazole 30 mg tablet 30 mg PO HS Patient Comments: TAKE 1 TABLET BY MOUTH ONCE A DAY AT BEDTIME insulin glargine [Basaglar KwikPen U-100 Insulin] 100 unit/mL (3 mL) insulin pen 30 unit subcut QAM trazodone 50 mg tablet 50 mg PO HS Patient Comments: TAKE 1 TABLET BY MOUTH ONCE A DAY AT BEDTIME NEEDED (DME) pen needle, diabetic [Pen Needle] 29 gauge x 1/2 needle See Rx Instructions .Route Qty: 100 0RF Rx Instructions: As directed ([facility]) blood-glucose meter Kit See Rx Instructions .Route Qty: 1 0RF Rx Instructions: As directed ([facility] [place]) Blood Glucose Test Strip See Rx Instructions .Route Qty: 50 0RF Rx Instructions: As directed ([facility]) lancets Misc See Rx Instructions .Route Qty: 100 0RF Rx Instructions: As directed ([facility]) FreeStyle Shannan 2 Sensor Kit See Rx Instructions .Route Qty: 2 1RF Rx Instructions: As directed (DME) FreeStyle Shannan 2 Wilder Misc See Rx Instructions .Route Qty: 1 0RF Rx Instructions: As directed Problem List Clinical Impression: Schizophrenia Patient/Caregiver Discharge Instructions Education Materials: Treating Schizophrenia Additional Instructions: Please keep your appointment today with your counselor Laura for worsening symptoms return immediately Print Language: Kazakh Stand Alone Forms: Annamarie Award Info., Patient Portal Info Letter 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 funes
== END 2025-05-02 11:04 | disposition home or self-care (01) ==
LOC: SERX 11:01
PROVIDERS: Emergency Provider Family Medicine; PCP Family Medicine
DX: F20.9 Schizophrenia, unspecified (principal); I10 Essential (primary) hypertension
CPT/HCPCS: 99281